=== PATIENT | female | born 1930 | race Caucasian/White ===

== ENCOUNTER 2016-09-06 19:18 | Emergency (ER) | payer MEDICARE ==
--- NOTE | 2016-09-06 20:18 | ECGEPIP ---
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
[2016-09-06 20:26] LABS: MEAN CORPUSCULAR HEMOGLOBIN 31.8 pg (27.0-33.0); MEAN CORPUSCULAR HGB CONC 32.8 g/dl (32.0-36.5); MEAN CORPUSCULAR VOLUME 96.9 fl (80.0-96.0); RED CELL DISTRIBUTION WIDTH 12.3 % (11.5-14.5); WHITE BLOOD COUNT 6.4 K/mm3 (4.0-10.0)
[2016-09-06 20:28] LABS: INR 2.06
[2016-09-06 20:31] LABS: BLOOD UREA NITROGEN 29 MG/DL (7-18); CALCIUM LEVEL 9.4 MG/DL (8.8-10.2); CARBON DIOXIDE LEVEL 30 MEQ/L (21-32); CREATININE FOR GFR 1.29 MG/DL (0.55-1.02); GLOMERULAR FILTRATION RATE 41.7 (>32); GLUCOSE, FASTING 111 MG/DL (83-110)
[2016-09-06 20:35] LABS: ANION GAP 8 MEQ/L (8-16); CHLORIDE LEVEL 103 MEQ/L (98-107); POTASSIUM SERUM 4.1 MEQ/L (3.5-5.1); SODIUM LEVEL 141 MEQ/L (136-145)
--- NOTE | 2016-09-07 01:31 | EDDOCDS ---
Physician Documentation [facility], [place] Name: Janet Sandhu Age: 85 yrs Sex: Female : 1930 Arrival Date: 09/06/2016 Time: 19:18 Bed 4 Private MD: Unknown, Family Disposition: 09/07/16 01:19 Discharged to Home/Self Care. Impression: Chest pain, unspecified. - Condition is Stable. - Medication Reconciliation, Local Pharmacy Hours form. - Follow up: Isaias Belle MD; When: Call to arrange an appointment; Reason: Recheck today's complaints. - Problem is new. - Symptoms have improved. Historical: - Allergies: Aspirin; - Home Meds: 1. lisinopril 20 mg Oral tab 1 tab once daily 2. simvastatin 5 mg Oral tab 1 tab once daily 3. atenolol 75 mg Oral tab 2 times per day 4. amlodipine 5 mg Oral tab 1 tab once daily 5. Coumadin 1 mg Oral tab 1 tab once daily 6. Caltrate 600 + D oral oral Unknown daily 7. Vitamin C 250 mg Oral tab 8. Multivitamin Oral 9. tramadol 50 mg Oral tab - PMHx: Hypertension; High Cholesterol; Glaucoma; afib; - PSHx: eye surgery may 2010; - Family history: Father has/had cardiac disorder, Brother has/had cardiac disorder. - Social history: No barriers to communication noted, The patient speaks fluent Welsh, Smoking status: Patient states was never smoker of tobacco. - : The pt / caregiver states he / she is on anticoagulants: coumadin. Home medication list is obtained from the patient. - Exposure Risk Screening:: None identified. - Advance directive:: No. Vital Signs: 09/06 19:20 BP 155 / 96; Pulse 99; Resp 18; Temp 98.0; Pulse Ox 99% on R/A; Weight 52.16 kg / dem1 114.99 lbs; Height 5 ft. 3 in. (160.02 cm); Pain 2/10; 19:43 BP 137 / 80 (auto/); mv5 19:44 Pulse 82 MON; Pulse Ox 98% ; mv5 19:58 BP 147 / 65 (auto/); mv5 19:59 Pulse 80 MON; Pulse Ox 99% ; mv5 20:13 BP 140 / 79 (auto/); mv5 20:14 Pulse 76 MON; Pulse Ox 98% ; mv5 20:28 BP 120 / 65 (auto/); mv5 20:29 Pulse 76 MON; Pulse Ox 98% ; mv5 20:43 BP 131 / 59 (auto/); mv5 20:44 Pulse 72 MON; Pulse Ox 98% ; mv5 20:58 BP 136 / 67 (auto/); mv5 20:59 Pulse 78 MON; Pulse Ox 98% ; mv5 21:13 BP 123 / 59 (auto/); mv5 21:14 Pulse 74 MON; Pulse Ox 98% ; mv5 21:28 BP 151 / 67 (auto/); mv5 21:29 Pulse 78 MON; Pulse Ox 97% ; mv5 21:43 BP 122 / 58 (auto/); mv5 21:44 Pulse 72 MON; Pulse Ox 97% ; mv5 21:58 BP 132 / 75 (auto/); mv5 21:59 Pulse 72 MON; Pulse Ox 97% ; mv5 22:43 BP 149 / 63 (auto/); mv5 22:43 Pulse 76 MON; Pulse Ox 99% ; mv5 22:58 BP 136 / 65 (auto/); mv5 22:59 Pulse 82 MON; Pulse Ox 98% ; mv5 23:13 BP 125 / 57 (auto/); mv5 23:14 Pulse 76 MON; Pulse Ox 96% ; mv5 23:31 BP 148 / 78 (auto/); mv5 23:31 Pulse 84 MON; Pulse Ox 98% ; mv5 23:43 BP 124 / 59 (auto/); mv5 23:44 Pulse 70 MON; Pulse Ox 97% ; mv5 23:58 BP 127 / 77 (auto/); mv5 23:59 Pulse 70 MON; Pulse Ox 96% ; mv5 0207 00:13 BP 128 / 66 (auto/); mv5 00:14 Pulse 70 MON; Pulse Ox 96% ; mv5 00:43 BP 135 / 65 (auto/); mv5 00:44 Pulse 68 MON; Pulse Ox 97% ; mv5 00:58 BP 125 / 71 (auto/); mv5 00:59 Pulse 68 MON; Pulse Ox 96% ; mv5 01:13 BP 142 / 90 (auto/); mv5 01:13 Pulse 72 MON; Pulse Ox 98% ; mv5 09/06 19:20 Body Mass Index 20.37 (52.16 kg, 160.02 cm) dem1 MDM: 09/06 19:35 ECG WITH READING ER PHYS+CARDIAG ordered. EDMS 20:06 CBC Ordered. EDMS 20:06 MED Profile Ordered. EDMS 20:06 Cardiac Marker Panel Ordered. EDMS 20:06 Pt & Aptt Ordered. EDMS 20:07 Chest, 1 View Ordered. EDMS 21:00 CBC Reviewed. cs11 21:00 MED Profile Reviewed. cs11 21:00 Pt & Aptt Reviewed. cs11 21:00 Cardiac Marker Panel Reviewed. cs11 21:00 EKG-ADULT Reviewed. cs11 22:25 Misc Construction Accountant Order ordered. cs11 22:37 Misc Construction Accountant Order complete. tmm1 22:38 ECG WITH READING ER PHYS ordered. EDMS 22:38 CARDIAC MARKER PANEL Ordered. EDMS 09/07 01:12 Financial registration complete. pm4 01:16 CARDIAC MARKER PANEL Reviewed. cs11 Signatures: Dispatcher [employer] EDMS [place],RN RN lf1 Dominic Lizarraga, DO DO cs11 Kasandra Otto, FINE HAIRER FINE HAIRER tmm1 Faisal Mora, Reg Reg pm4 Antonia Santacruz,RN RN mv5 MTDD
--- NOTE | 2016-09-07 01:31 | EDDOCDS ---
Nurse's Notes [facility] Name: Mattie Sandhu Age: 85 yrs Sex: Female : 1930 Arrival Date: 09/06/2016 Time: 19:18 Bed 4 Private MD: Unknown, Family Dr Diagnosis: Chest pain, unspecified Presentation: 09/06 19:25 Red Flag criteria, patient assessed and taken directly to a bed. Primary Nurse aware, lf1 charge nurse aware, EKG ordered. 19:26 Presenting complaint: Patient states: Sudden onset chest pain that began at 1800 lf1 tonight while she getting dinner ready. Pain was mid sternal and 9/10, lasted about 1 minute and did not radiate. Pt. denies dizziness and shortness of breath. History of Afib. Aspirin was not taken prior to arrival. Adult Sepsis Screening: The patient does not have new or worsening altered mentation. Patient's respiratory rate is less than 22. Systolic blood pressure is greater than 100. Patient has a qSOFA score of 0- Negative Sepsis Screen. Suicide/Homicide risk assessment- the patient denies having any suicidal and/or homicidal ideations and does not present with any other emotional, behavioral or mental health complaints. Status: Patient is not a service desk technician or dependent. Transition of care: patient was not received from another setting of care. 19:26 Acuity: MARISOL Level 3 lf1 19:26 Method Of Arrival: Walkin/Carried/Asstd lf1 Triage Assessment: 19:43 General: Appears in no apparent distress, well nourished, well groomed, Behavior is mv5 cooperative, pleasant, Pt resting comfortably, daughter at bedside.. Pain: Denies pain. The patient is triaged at the bedside. See Assessment in Nurses Notes section of ED record. Neurological: Level of Consciousness is awake, alert, Oriented to person, place, time. EENT: No deficits noted. Cardiovascular: Capillary refill < 3 seconds Heart tones S1 S2 present Pulses are all present. Rhythm is atrial fibrillation Other in controlled rate. 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 radiates Does not radiate. episodes last 2-3 minutes began 1 hour prior to arrival. Respiratory: Airway is patent Respiratory effort is even, unlabored, Respiratory pattern is regular, symmetrical, Breath sounds are clear bilaterally. GI: No deficits noted. Abdomen is flat, Bowel sounds present X 4 quads. Abd is soft and non tender X 4 quads. Historical: - Allergies: Aspirin; - Home Meds: 1. lisinopril 20 mg Oral tab 1 tab once daily 2. simvastatin 5 mg Oral tab 1 tab once daily 3. atenolol 75 mg Oral tab 2 times per day 4. amlodipine 5 mg Oral tab 1 tab once daily 5. Coumadin 1 mg Oral tab 1 tab once daily 6. Caltrate 600 + D oral oral Unknown daily 7. Vitamin C 250 mg Oral tab 8. Multivitamin Oral 9. tramadol 50 mg Oral tab - PMHx: Hypertension; High Cholesterol; Glaucoma; afib; - PSHx: eye surgery may 2010; - Family history: Father has/had cardiac disorder, Brother has/had cardiac disorder. - Social history: No barriers to communication noted, The patient speaks fluent Greek, Smoking status: Patient states was never smoker of tobacco. - : The pt / caregiver states he / she is on anticoagulants: coumadin. Home medication list is obtained from the patient. - Exposure Risk Screening:: None identified. - Advance directive:: No. Screenin:47 Screening information is obtained from the patient, family members. Fall risk: No risks mv5 identified. Assistance ADL's: requires no assistance with activities of daily living. Abuse/DV Screen: The patient / caregiver reports he/she is: not in a situation that causes fear, pain or injury. Nutritional screening: No deficits noted. Advance Directives: There is no active DNR order. home support is adequate. Assessment: 19:47 General: See triage assessment.. Cardiovascular: Capillary refill < 3 seconds Heart mv5 tones S1 S2 present Pulses are all present. Rhythm is atrial fibrillation Other in controlled rate Chest pain is denied. 21:30 General: Appears in no apparent distress. Cardiovascular:. Derm: Skin is pink, warm & mv5 dry. 21:30 Cardiovascular: Rhythm is atrial fibrillation. mv5 22:07 General: Appears in no apparent distress. Pain: Denies pain. Cardiovascular: No mv5 deficits noted. 22:31 General: Appears in no apparent distress, Given food as requested with MD approval. mv5 Family at bedside. Awaiting repeat testing at 0000.. 22:31 Cardiovascular: Rhythm is atrial fibrillation. mv5 23:24 General: Appears in no apparent distress, Family at bedside.. Pain: Denies pain. mv5 Cardiovascular: No deficits noted. Derm: Skin is pink, warm & dry. 23:28 General: Appears in no apparent distress, comfortable, Pt assisted to use the restroom mv5 by ED QUARTER TRIMMER.. 23:28 Cardiovascular: Rhythm is atrial fibrillation. mv5 09/07 00:14 General: Appears in no apparent distress. Cardiovascular: Rhythm is atrial fibrillation mv5 Other in controlled rate. Respiratory: Airway is patent Respiratory effort is even, unlabored, Respiratory pattern is regular, symmetrical. Derm: Skin is pink, warm & dry. 01:27 General: Appears in no apparent distress, comfortable, Family at bedside.. Pain: Denies mv5 pain. Neurological: Level of Consciousness is awake, alert, Oriented to person, place, time. Cardiovascular: Rhythm is atrial fibrillation Other in controlled rate. Respiratory: Airway is patent Respiratory effort is even, unlabored, Respiratory pattern is regular, symmetrical. Derm: Skin is pink, warm & dry. Vital Signs: 09/06 19:20 BP 155 / 96; Pulse 99; Resp 18; Temp 98.0; Pulse Ox 99% on R/A; Weight 52.16 kg; Height dem1 5 ft. 3 in. (160.02 cm); Pain 2/10; 19:43 BP 137 / 80 (auto/); mv5 19:44 Pulse 82 MON; Pulse Ox 98% ; mv5 19:58 BP 147 / 65 (auto/); mv5 19:59 Pulse 80 MON; Pulse Ox 99% ; mv5 20:13 BP 140 / 79 (auto/); mv5 20:14 Pulse 76 MON; Pulse Ox 98% ; mv5 20:28 BP 120 / 65 (auto/); mv5 20:29 Pulse 76 MON; Pulse Ox 98% ; mv5 20:43 BP 131 / 59 (auto/); mv5 20:44 Pulse 72 MON; Pulse Ox 98% ; mv5 20:58 BP 136 / 67 (auto/); mv5 20:59 Pulse 78 MON; Pulse Ox 98% ; mv5 21:13 BP 123 / 59 (auto/); mv5 21:14 Pulse 74 MON; Pulse Ox 98% ; mv5 21:28 BP 151 / 67 (auto/); mv5 21:29 Pulse 78 MON; Pulse Ox 97% ; mv5 21:43 BP 122 / 58 (auto/); mv5 21:44 Pulse 72 MON; Pulse Ox 97% ; mv5 21:58 BP 132 / 75 (auto/); mv5 21:59 Pulse 72 MON; Pulse Ox 97% ; mv5 22:43 BP 149 / 63 (auto/); mv5 22:43 Pulse 76 MON; Pulse Ox 99% ; mv5 22:58 BP 136 / 65 (auto/); mv5 22:59 Pulse 82 MON; Pulse Ox 98% ; mv5 23:13 BP 125 / 57 (auto/); mv5 23:14 Pulse 76 MON; Pulse Ox 96% ; mv5 23:31 BP 148 / 78 (auto/); mv5 23:31 Pulse 84 MON; Pulse Ox 98% ; mv5 23:43 BP 124 / 59 (auto/); mv5 23:44 Pulse 70 MON; Pulse Ox 97% ; mv5 23:58 BP 127 / 77 (auto/); mv5 23:59 Pulse 70 MON; Pulse Ox 96% ; mv5 02/07 00:13 BP 128 / 66 (auto/); mv5 00:14 Pulse 70 MON; Pulse Ox 96% ; mv5 00:43 BP 135 / 65 (auto/); mv5 00:44 Pulse 68 MON; Pulse Ox 97% ; mv5 00:58 BP 125 / 71 (auto/); mv5 00:59 Pulse 68 MON; Pulse Ox 96% ; mv5 01:13 BP 142 / 90 (auto/); mv5 01:13 Pulse 72 MON; Pulse Ox 98% ; mv5 09/06 19:20 Body Mass Index 20.37 (52.16 kg, 160.02 cm) dem1 Vitals: 09/06 19:20 Log In Time: September 06, 2016 at 19:18. RN notified that patient meets Red Flag dem1 criteria. ED Course: 19:20 Patient visited by Allyssa Singh. dem1 19:20 Unknown, Family Dr is Private Physician. dem1 19:20 Patient moved to Waiting dem1 19:26 Antonia Santacruz,RN is Primary Nurse. sls1 19:26 Patient moved to 4 sls1 19:29 Triage Initiated lf1 19:30 Dominic Gracia DO is Attending Physician. cs11 19:30 Patient visited by Dominic Gracia DO. cs11 19:42 Patient visited by Scott Lujan PCA. mdr 19:42 EKG done. (by ED staff). Reviewed by Dominic Gracia DO. mdr 19:43 Family accompanied patient. mv5 19:46 Patient visited by Rebeca Rios PCA. karol 19:46 Pt greeted and oriented to ED. Patient advised of names of staff involved in care, karol location of call benavides, wait times and NPO status. Accompanied by Family Member, Patient has correct armband on for positive identification. Placed in gown. Bed in low position. Call light in reach. Side rails up X2. bus driver/monitor on. Pulse ox on. NIBP on. 19:47 The patient / caregiver is instructed regarding the plan of care and ED course. mv5 19:47 Inserted saline lock: 18 gauge in left antecubital area and blood collected. The mv5 patient tolerated the procedure well. 20:34 Patient visited by Antonia Santacruz RN. mv5 20:54 EKG-ADULT Returned. EDMS 21:47 Patient visited by Antonia Santacruz RN. mv5 22:24 Patient visited by Noreen Pizano RN. sls1 22:56 Patient visited by Antonia Santacruz RN. mv5 23:28 Patient visited by Antonia Santacruz RN. mv5 23:28 Patient visited by Scott Lujan PCA. mdr 23:28 Assisted to bathroom. mdr 02/07 00:25 Patient visited by Antonia Santacruz RN. mv5 00:33 CARDIAC MARKER PANEL Sent. mdr 00:44 Discontinued intact, bleeding controlled, pressure dressing applied, No mv5 redness/swelling at site. No procedures done that require assistance. 00:59 Patient visited by Antonia Santacruz RN. mv5 01:19 Isaias Belle MD is Referral Physician. cs11 Order Results: Lab Order: CBC; SPEC'M 09/06/16 19:36 Test: WHITE BLOOD COUNT; Value: 6.4; Range: 4.0-10.0; Units: K/mm3; Status: F Test: RED BLOOD COUNT; Value: 4.03; Range: 4.00-5.40; Units: M/mm3; Status: F Test: HEMOGLOBIN; Value: 12.8; Range: 12.0-16.0; Units: g/dl; Status: F Test: HEMATOCRIT; Value: 39.1; Range: 36.0-47.0; Units: %; Status: F Test: MEAN CORPUSCULAR VOLUME; Value: 96.9; Range: 80.0-96.0; Abnormal: Above high normal; Units: fl; Status: F Test: MEAN CORPUSCULAR HEMOGLOBIN; Value: 31.8; Range: 27.0-33.0; Units: pg; Status: F Test: MEAN CORPUSCULAR HGB CONC; Value: 32.8; Range: 32.0-36.5; Units: g/dl; Status: F Test: RED CELL DISTRIBUTION WIDTH; Value: 12.3; Range: 11.5-14.5; Units: %; Status: F Test: PLATELET COUNT, AUTOMATED; Value: 179; Range: 150-450; Units: k/mm3; Status: F Lab Order: MED Profile; [facility] 09/06/16 19:36 Test: GLUCOSE, FASTING; Value: 111; Range: 83-110; Abnormal: Above high normal; Units: MG/DL; Status: F Test: BLOOD UREA NITROGEN; Value: 29; Range: 7-18; Abnormal: Above high normal; Units: MG/DL; Status: F Test: CREATININE FOR GFR; Value: 1.29; Range: 0.55-1.02; Abnormal: Above high normal; Units: MG/DL; Status: F Test: GLOMERULAR FILTRATION RATE; Value: 41.7; Range: >32; Status: F Test: SODIUM LEVEL; Value: 141; Range: 136-145; Units: MEQ/L; Status: F Test: POTASSIUM SERUM; Value: 4.1; Range: 3.5-5.1; Units: MEQ/L; Status: F Test: CHLORIDE LEVEL; Value: 103; Range: 98-107; Units: MEQ/L; Status: F Test: CARBON DIOXIDE LEVEL; Value: 30; Range: 21-32; Units: MEQ/L; Status: F Test: ANION GAP; Value: 8; Range: 8-16; Units: MEQ/L; Status: F Test: CALCIUM LEVEL; Value: 9.4; Range: 8.8-10.2; Units: MG/DL; Status: F Test Note: ; Units are mL/min/1.73 m2 Chronic Kidney Disease Staging per NKF: Stage I & II GFR >=60 Normal to Mildly Decreased Stage III GFR 30-59 Moderately Decreased Stage IV GFR 15-29 Severely Decreased Stage V GFR <15 Very Little GFR Left ESRD GFR <15 on RAILROAD INSPECTOR Lab Order: Cardiac Marker Panel; [facility] 09/06/16 19:36 Test: CPK CREATINE PHOSPHOKINASE; Value: 63; Range: 26-192; Units: U/L; Status: F Test: CK-MB VALUE MASS; Value: 2.4; Range: 0.0-3.6; Units: NG/ML; Status: F Test: MB/CK RELATIVE INDEX; Value: 3.80; Range: < OR =4; Status: F Test: TROPONIN I; Value: < 0.02; Range: < 0.10; Units: NG/ML; Status: F Test Note: ; DIAGNOSIS CRITERIA MMB ng/ml Relative Index (RI) NON-AMI < or = 5 N/A AYALA ZONE > 5 < or = 4 AMI > 5 > 4 Lab Order: Pt & Aptt; [facility] 09/06/16 19:36 Test: PROTHROMBIN TIME; Value: 23.3; Range: 12.3-14.5; Abnormal: Above high normal; Units: SECONDS; Status: F Test: INR; Value: 2.06; Status: F Test: PARTIAL THROMBOPLASTIN TIME; Value: 53.0; Range: 26.6-37.1; Abnormal: Above high normal; Units: SECONDS; Status: F Test Note: ; THERAPUTIC HUMAN INR VALUES INDICATIONS NORMAL RANGES PROPHYLAXIS/TREATMENT OF: VENOUS THROMBOSIS 2.0-3.0 PULMONARY EMBOLISM 2.0-3.0 PREVENTION OF SYSTEMIC EMBOLISM FROM: TISSUE HEART VALVES 2.0-3.0 ACUTE MYOCARDIAL INFARCTION 2.0-3.0 VALVULAR HEART DISEASE 2.0-3.0 ATRIAL FIBRILLATION 2.0-3.0 MECHANICAL VALVES(HIGH RISK) 2.5-3.5 RECURRENT MYOCARDIAL INFARCTION 2.5-3.5 Lab Order: CARDIAC MARKER PANEL; [facility] 09/07/16 00:28 Test: CPK CREATINE PHOSPHOKINASE; Value: 52; Range: 26-192; Units: U/L; Status: F Test: CK-MB VALUE MASS; Value: 1.7; Range: 0.0-3.6; Units: NG/ML; Status: F Test: MB/CK RELATIVE INDEX; Value: 3.26; Range: < OR =4; Status: F Test: TROPONIN I; Value: < 0.02; Range: < 0.10; Units: NG/ML; Status: F Test Note: ; DIAGNOSIS CRITERIA MMB ng/ml Relative Index (RI) NON-AMI < or = 5 N/A AYALA ZONE > 5 < or = 4 AMI > 5 > 4 Radiology Order: EKG-ADULT Test: EKG-ADULT REASON FOR EXAMINATION: Chest Pain; Stationary ECG Study; [facility] - ED; ; Test Date: 2016-09-06; Pat Name: MATTIE SANDHU Department:; Room: -; Gender: F 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 No cognitive and/or mv5 functional deficits noted. Patient verbalized understanding of disposition instructions. patient administered narcotics - no. The following High Risk Discharge criteria are identified: None. Condition: stable. Discharge instructions given to patient, family, Demonstrated understanding of Pt was receptive of discharge instructions/ teaching. No special radiology studies were completed. Property sent home with patient. 01:19 Discharge ordered by Provider. cs11 01:30 Patient left the ED. mv5 Signatures: Dispatcher [employer] EDMS [place],RN RN lf1 Rebeca Rios, QUARTER TRIMMER QUARTER TRIMMER Noreen Lombardi, RN RN sls1 Allyssa Singh dem1 Dominic Gracia DO DO cs11 Scott Lujan, QUARTER TRIMMER QUARTER TRIMMER Antonia GasparRN RN mv5 MTDD
--- NOTE | 2016-09-07 08:23 | REP ---
Portable chest, single AP view, patient sitting, 09/06/2016, 08:00 p.m.: Comparison is 09/28/2014. 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 There are no acute infiltrates or effusions. Cardiac size appears enlarged, however, there is magnification from portable positioning. The emily, mediastinum, bony thorax are unchanged. Impression: Chronic stable changes as described. No new or acute cardiopulmonary findings. Signed by Mike Navarro MD 09/07/2016 08:15 A
--- NOTE | 2016-09-08 17:37 | ECGEPIP ---
Stationary ECG Study [facility] - ED Test Date: 2016-09-07 Pat Name: MATTIE DEGROOT Department: Room: - Gender: F Personnel Officer: : 1930 Requested By: AL GRACIA Order Number: [id number] Reading MD: Michaela Christiansen Measurements Intervals [place] Rate: 61 P: NC: 0 QRS: 60 QRSD: 85 T: 32 QT: 397 QTc: 403 Interpretive Statements ATRIAL FIBRILLATION POSSIBLE RIGHT VENTRICULAR CONDUCTION DELAY ABNORMAL RHYTHM ECG Electronically Signed On 09-08-2016 17:37:20 EST by Michaela Christiansen
--- NOTE | 2016-09-09 02:32 | EDDOCDS ---
Physician Documentation [facility] Name: Janet Sandhu Age: 85 yrs Sex: Female : 1930 Arrival Date: 09/06/2016 Time: 19:18 Bed 4 Private MD: Unknown, Family Disposition: 09/07/16 01:19 Discharged to Home/Self Care. Impression: Chest pain, unspecified. - Condition is Stable. - Medication Reconciliation, Local Pharmacy Hours form. - Follow up: Isaias Belle MD; When: Call to arrange an appointment; Reason: Recheck today's complaints. - Problem is new. - Symptoms have improved. Historical: - Allergies: Aspirin; - Home Meds: 1. lisinopril 20 mg Oral tab 1 tab once daily 2. simvastatin 5 mg Oral tab 1 tab once daily 3. atenolol 75 mg Oral tab 2 times per day 4. amlodipine 5 mg Oral tab 1 tab once daily 5. Coumadin 1 mg Oral tab 1 tab once daily 6. Caltrate 600 + D oral oral Unknown daily 7. Vitamin C 250 mg Oral tab 8. Multivitamin Oral 9. tramadol 50 mg Oral tab - PMHx: Hypertension; High Cholesterol; Glaucoma; afib; - PSHx: eye surgery may 2010; - Family history: Father has/had cardiac disorder, Brother has/had cardiac disorder. - Social history: No barriers to communication noted, The patient speaks fluent Swedish, Smoking status: Patient states was never smoker of tobacco. - : The pt / caregiver states he / she is on anticoagulants: coumadin. Home medication list is obtained from the patient. - Exposure Risk Screening:: None identified. - Advance directive:: No. Vital Signs: 09/06 19:20 BP 155 / 96; Pulse 99; Resp 18; Temp 98.0; Pulse Ox 99% on R/A; Weight 52.16 kg / dem1 114.99 lbs; Height 5 ft. 3 in. (160.02 cm); Pain 2/10; 19:43 BP 137 / 80 (auto/); mv5 19:44 Pulse 82 MON; Pulse Ox 98% ; mv5 19:58 BP 147 / 65 (auto/); mv5 19:59 Pulse 80 MON; Pulse Ox 99% ; mv5 20:13 BP 140 / 79 (auto/); mv5 20:14 Pulse 76 MON; Pulse Ox 98% ; mv5 20:28 BP 120 / 65 (auto/); mv5 20:29 Pulse 76 MON; Pulse Ox 98% ; mv5 20:43 BP 131 / 59 (auto/); mv5 20:44 Pulse 72 MON; Pulse Ox 98% ; mv5 20:58 BP 136 / 67 (auto/); mv5 20:59 Pulse 78 MON; Pulse Ox 98% ; mv5 21:13 BP 123 / 59 (auto/); mv5 21:14 Pulse 74 MON; Pulse Ox 98% ; mv5 21:28 BP 151 / 67 (auto/); mv5 21:29 Pulse 78 MON; Pulse Ox 97% ; mv5 21:43 BP 122 / 58 (auto/); mv5 21:44 Pulse 72 MON; Pulse Ox 97% ; mv5 21:58 BP 132 / 75 (auto/); mv5 21:59 Pulse 72 MON; Pulse Ox 97% ; mv5 22:43 BP 149 / 63 (auto/); mv5 22:43 Pulse 76 MON; Pulse Ox 99% ; mv5 22:58 BP 136 / 65 (auto/); mv5 22:59 Pulse 82 MON; Pulse Ox 98% ; mv5 23:13 BP 125 / 57 (auto/); mv5 23:14 Pulse 76 MON; Pulse Ox 96% ; mv5 23:31 BP 148 / 78 (auto/); mv5 23:31 Pulse 84 MON; Pulse Ox 98% ; mv5 23:43 BP 124 / 59 (auto/); mv5 23:44 Pulse 70 MON; Pulse Ox 97% ; mv5 23:58 BP 127 / 77 (auto/); mv5 23:59 Pulse 70 MON; Pulse Ox 96% ; mv5 0207 00:13 BP 128 / 66 (auto/); mv5 00:14 Pulse 70 MON; Pulse Ox 96% ; mv5 00:43 BP 135 / 65 (auto/); mv5 00:44 Pulse 68 MON; Pulse Ox 97% ; mv5 00:58 BP 125 / 71 (auto/); mv5 00:59 Pulse 68 MON; Pulse Ox 96% ; mv5 01:13 BP 142 / 90 (auto/); mv5 01:13 Pulse 72 MON; Pulse Ox 98% ; mv5 09/06 19:20 Body Mass Index 20.37 (52.16 kg, 160.02 cm) dem1 MDM: 09/06 19:35 ECG WITH READING ER PHYS+CARDIAG ordered. EDMS 20:06 CBC Ordered. EDMS 20:06 MED Profile Ordered. EDMS 20:06 Cardiac Marker Panel Ordered. EDMS 20:06 Pt & Aptt Ordered. EDMS 20:07 Chest, 1 View Ordered. EDMS 21:00 CBC Reviewed. cs11 21:00 MED Profile Reviewed. cs11 21:00 Pt & Aptt Reviewed. cs11 21:00 Cardiac Marker Panel Reviewed. cs11 21:00 EKG-ADULT Reviewed. cs11 22:25 Misc Optics Test Technician Order ordered. cs11 22:37 Misc Optics Test Technician Order complete. tmm1 22:38 ECG WITH READING ER PHYS ordered. EDMS 22:38 CARDIAC MARKER PANEL Ordered. EDMS 09/07 01:12 Financial registration complete. pm4 01:16 CARDIAC MARKER PANEL Reviewed. cs11 01:59 [facility] Payment Agreement was scanned into [employer] and attached to record. hs2 10:41 T-Sheet-- Draft Copy was scanned into [employer] and attached to record. gb 10:41 ECG/EKG was scanned into [employer] and attached to record. gb 14:31 ECG/EKG was scanned into [employer] and attached to record. gb Signatures: Dispatcher [employer] EDDionne Omalley, Reg Reg gb [place],RN RN lf1 Dominic Lizarraga, DO DO cs11 McLear, Kasandra, HIGH HEEL BUILDER HIGH HEEL BUILDER tmm1 Antonia Lakhani, Reg Reg hs2 Faisal Mora, Reg Reg pm4 Antonia Santacruz,RN RN mv5 The chart was reviewed and I authenticate all verbal orders and agree with the evaluation and treatment provided.Attachments: 01:59 [facility] Payment Agreement hs2 10:41 T-Sheet-- Draft Copy gb 10:41 ECG/EKG gb 14:31 ECG/EKG gb Chart Complete MTDD
--- NOTE | 2016-09-09 02:32 | EDDOCDS ---
Nurse's Notes [facility] Name: Mattie Sandhu Age: 85 yrs Sex: Female : 1930 Arrival Date: 09/06/2016 Time: 19:18 Bed 4 Private MD: Unknown, Family Dr Diagnosis: Chest pain, unspecified Presentation: 09/06 19:25 Red Flag criteria, patient assessed and taken directly to a bed. Primary Nurse aware, lf1 charge nurse aware, EKG ordered. 19:26 Presenting complaint: Patient states: Sudden onset chest pain that began at 1800 lf1 tonight while she getting dinner ready. Pain was mid sternal and 9/10, lasted about 1 minute and did not radiate. Pt. denies dizziness and shortness of breath. History of Afib. Aspirin was not taken prior to arrival. Adult Sepsis Screening: The patient does not have new or worsening altered mentation. Patient's respiratory rate is less than 22. Systolic blood pressure is greater than 100. Patient has a qSOFA score of 0- Negative Sepsis Screen. Suicide/Homicide risk assessment- the patient denies having any suicidal and/or homicidal ideations and does not present with any other emotional, behavioral or mental health complaints. Status: Patient is not a electric refrigerator servicer or dependent. Transition of care: patient was not received from another setting of care. 19:26 Acuity: MARISOL Level 3 lf1 19:26 Method Of Arrival: Walkin/Carried/Asstd lf1 Triage Assessment: 19:43 General: Appears in no apparent distress, well nourished, well groomed, Behavior is mv5 cooperative, pleasant, Pt resting comfortably, daughter at bedside.. Pain: Denies pain. The patient is triaged at the bedside. See Assessment in Nurses Notes section of ED record. Neurological: Level of Consciousness is awake, alert, Oriented to person, place, time. EENT: No deficits noted. Cardiovascular: Capillary refill < 3 seconds Heart tones S1 S2 present Pulses are all present. Rhythm is atrial fibrillation Other in controlled rate. Chest pain is denied is described as Pain episode resolved LOAN ANALYST.. radiates Does not radiate. episodes last 2-3 minutes began 1 hour prior to arrival. Respiratory: Airway is patent Respiratory effort is even, unlabored, Respiratory pattern is regular, symmetrical, Breath sounds are clear bilaterally. GI: No deficits noted. Abdomen is flat, Bowel sounds present X 4 quads. Abd is soft and non tender X 4 quads. Historical: - Allergies: Aspirin; - Home Meds: 1. lisinopril 20 mg Oral tab 1 tab once daily 2. simvastatin 5 mg Oral tab 1 tab once daily 3. atenolol 75 mg Oral tab 2 times per day 4. amlodipine 5 mg Oral tab 1 tab once daily 5. Coumadin 1 mg Oral tab 1 tab once daily 6. Caltrate 600 + D oral oral Unknown daily 7. Vitamin C 250 mg Oral tab 8. Multivitamin Oral 9. tramadol 50 mg Oral tab - PMHx: Hypertension; High Cholesterol; Glaucoma; afib; - PSHx: eye surgery may 2010; - Family history: Father has/had cardiac disorder, Brother has/had cardiac disorder. - Social history: No barriers to communication noted, The patient speaks fluent Tanzanian, Smoking status: Patient states was never smoker of tobacco. - : The pt / caregiver states he / she is on anticoagulants: coumadin. Home medication list is obtained from the patient. - Exposure Risk Screening:: None identified. - Advance directive:: No. Screenin:47 Screening information is obtained from the patient, family members. Fall risk: No risks mv5 identified. Assistance ADL's: requires no assistance with activities of daily living. Abuse/DV Screen: The patient / caregiver reports he/she is: not in a situation that causes fear, pain or injury. Nutritional screening: No deficits noted. Advance Directives: There is no active DNR order. home support is adequate. Assessment: 19:47 General: See triage assessment.. Cardiovascular: Capillary refill < 3 seconds Heart mv5 tones S1 S2 present Pulses are all present. Rhythm is atrial fibrillation Other in controlled rate Chest pain is denied. 21:30 General: Appears in no apparent distress. Cardiovascular:. Derm: Skin is pink, warm & mv5 dry. 21:30 Cardiovascular: Rhythm is atrial fibrillation. mv5 22:07 General: Appears in no apparent distress. Pain: Denies pain. Cardiovascular: No mv5 deficits noted. 22:31 General: Appears in no apparent distress, Given food as requested with MD approval. mv5 Family at bedside. Awaiting repeat testing at 0000.. 22:31 Cardiovascular: Rhythm is atrial fibrillation. mv5 23:24 General: Appears in no apparent distress, Family at bedside.. Pain: Denies pain. mv5 Cardiovascular: No deficits noted. Derm: Skin is pink, warm & dry. 23:28 General: Appears in no apparent distress, comfortable, Pt assisted to use the restroom mv5 by ED OCCUPATIONAL HYGIENIST.. 23:28 Cardiovascular: Rhythm is atrial fibrillation. mv5 09/07 00:14 General: Appears in no apparent distress. Cardiovascular: Rhythm is atrial fibrillation mv5 Other in controlled rate. Respiratory: Airway is patent Respiratory effort is even, unlabored, Respiratory pattern is regular, symmetrical. Derm: Skin is pink, warm & dry. 01:27 General: Appears in no apparent distress, comfortable, Family at bedside.. Pain: Denies mv5 pain. Neurological: Level of Consciousness is awake, alert, Oriented to person, place, time. Cardiovascular: Rhythm is atrial fibrillation Other in controlled rate. Respiratory: Airway is patent Respiratory effort is even, unlabored, Respiratory pattern is regular, symmetrical. Derm: Skin is pink, warm & dry. Vital Signs: 09/06 19:20 BP 155 / 96; Pulse 99; Resp 18; Temp 98.0; Pulse Ox 99% on R/A; Weight 52.16 kg; Height dem1 5 ft. 3 in. (160.02 cm); Pain 2/10; 19:43 BP 137 / 80 (auto/); mv5 19:44 Pulse 82 MON; Pulse Ox 98% ; mv5 19:58 BP 147 / 65 (auto/); mv5 19:59 Pulse 80 MON; Pulse Ox 99% ; mv5 20:13 BP 140 / 79 (auto/); mv5 20:14 Pulse 76 MON; Pulse Ox 98% ; mv5 20:28 BP 120 / 65 (auto/); mv5 20:29 Pulse 76 MON; Pulse Ox 98% ; mv5 20:43 BP 131 / 59 (auto/); mv5 20:44 Pulse 72 MON; Pulse Ox 98% ; mv5 20:58 BP 136 / 67 (auto/); mv5 20:59 Pulse 78 MON; Pulse Ox 98% ; mv5 21:13 BP 123 / 59 (auto/); mv5 21:14 Pulse 74 MON; Pulse Ox 98% ; mv5 21:28 BP 151 / 67 (auto/); mv5 21:29 Pulse 78 MON; Pulse Ox 97% ; mv5 21:43 BP 122 / 58 (auto/); mv5 21:44 Pulse 72 MON; Pulse Ox 97% ; mv5 21:58 BP 132 / 75 (auto/); mv5 21:59 Pulse 72 MON; Pulse Ox 97% ; mv5 22:43 BP 149 / 63 (auto/); mv5 22:43 Pulse 76 MON; Pulse Ox 99% ; mv5 22:58 BP 136 / 65 (auto/); mv5 22:59 Pulse 82 MON; Pulse Ox 98% ; mv5 23:13 BP 125 / 57 (auto/); mv5 23:14 Pulse 76 MON; Pulse Ox 96% ; mv5 23:31 BP 148 / 78 (auto/); mv5 23:31 Pulse 84 MON; Pulse Ox 98% ; mv5 23:43 BP 124 / 59 (auto/); mv5 23:44 Pulse 70 MON; Pulse Ox 97% ; mv5 23:58 BP 127 / 77 (auto/); mv5 23:59 Pulse 70 MON; Pulse Ox 96% ; mv5 02/07 00:13 BP 128 / 66 (auto/); mv5 00:14 Pulse 70 MON; Pulse Ox 96% ; mv5 00:43 BP 135 / 65 (auto/); mv5 00:44 Pulse 68 MON; Pulse Ox 97% ; mv5 00:58 BP 125 / 71 (auto/); mv5 00:59 Pulse 68 MON; Pulse Ox 96% ; mv5 01:13 BP 142 / 90 (auto/); mv5 01:13 Pulse 72 MON; Pulse Ox 98% ; mv5 09/06 19:20 Body Mass Index 20.37 (52.16 kg, 160.02 cm) dem1 Vitals: 09/06 19:20 Log In Time: September 06, 2016 at 19:18. RN notified that patient meets Red Flag dem1 criteria. ED Course: 19:20 Patient visited by Allyssa Singh. dem1 19:20 Unknown, Family Dr is Private Physician. dem1 19:20 Patient moved to Waiting dem1 19:26 Antonia Santacruz,RN is Primary Nurse. sls1 19:26 Patient moved to 4 sls1 19:29 Triage Initiated lf1 19:30 Al Gracia DO is Attending Physician. cs11 19:30 Patient visited by Al Gracia DO. cs11 19:42 Patient visited by Scott Lujan PCA. mdr 19:42 EKG done. (by ED staff). Reviewed by Al Gracia DO. mdr 19:43 Family accompanied patient. mv5 19:46 Patient visited by Rebeca Rios PCA. karol 19:46 Pt greeted and oriented to ED. Patient advised of names of staff involved in care, karol location of call benavides, wait times and NPO status. Accompanied by Family Member, Patient has correct armband on for positive identification. Placed in gown. Bed in low position. Call light in reach. Side rails up X2. surveillance system monitor on. Pulse ox on. NIBP on. 19:47 The patient / caregiver is instructed regarding the plan of care and ED course. mv5 19:47 Inserted saline lock: 18 gauge in left antecubital area and blood collected. The mv5 patient tolerated the procedure well. 20:34 Patient visited by Antonia Santacruz RN. mv5 20:54 EKG-ADULT Returned. EDMS 21:47 Patient visited by Antonia Santacruz RN. mv5 22:24 Patient visited by Noreen Pizano RN. sls1 22:56 Patient visited by Antonia Santacruz,CHRISTOPHER. mv5 23:28 Patient visited by Antonia Santacruz,CHRISTOPHER. mv5 23:28 Patient visited by Scott Lujan PCA. mdr 23:28 Assisted to bathroom. mdr 02/07 00:25 Patient visited by Antonia Santacruz,CHRISTOPHER. mv5 00:33 CARDIAC MARKER PANEL Sent. mdr 00:44 Discontinued intact, bleeding controlled, pressure dressing applied, No mv5 redness/swelling at site. No procedures done that require assistance. 00:59 Patient visited by Antonia Santacruz RN. mv5 01:19 Isaias Belle MD is Referral Physician. cs11 01:59 [facility] [place] was scanned into [employer] and attached to record. hs2 08:55 Chest, 1 View Returned. EDMS 10:41 T-Sheet-- Draft Copy was scanned into [employer] and attached to record. gb 10:41 ECG/EKG was scanned into [employer] and attached to record. gb 14:31 ECG/EKG was scanned into [employer] and attached to record. gb 09/08 18:15 ECG WITH READING ER PHYS Returned. EDMS Order Results: Lab Order: CBC; SPEC'M 09/06/16 19:36 Test: WHITE BLOOD COUNT; Value: 6.4; Range: 4.0-10.0; Units: K/mm3; Status: F Test: RED BLOOD COUNT; Value: 4.03; Range: 4.00-5.40; Units: M/mm3; Status: F Test: HEMOGLOBIN; Value: 12.8; Range: 12.0-16.0; Units: g/dl; Status: F Test: HEMATOCRIT; Value: 39.1; Range: 36.0-47.0; Units: %; Status: F Test: MEAN CORPUSCULAR VOLUME; Value: 96.9; Range: 80.0-96.0; Abnormal: Above high normal; Units: fl; Status: F Test: MEAN CORPUSCULAR HEMOGLOBIN; Value: 31.8; Range: 27.0-33.0; Units: pg; Status: F Test: MEAN CORPUSCULAR HGB CONC; Value: 32.8; Range: 32.0-36.5; Units: g/dl; Status: F Test: RED CELL DISTRIBUTION WIDTH; Value: 12.3; Range: 11.5-14.5; Units: %; Status: F Test: PLATELET COUNT, AUTOMATED; Value: 179; Range: 150-450; Units: k/mm3; Status: F Lab Order: MED Profile; [facility]' 09/06/16 19:36 Test: GLUCOSE, FASTING; Value: 111; Range: 83-110; Abnormal: Above high normal; Units: MG/DL; Status: F Test: BLOOD UREA NITROGEN; Value: 29; Range: 7-18; Abnormal: Above high normal; Units: MG/DL; Status: F Test: CREATININE FOR GFR; Value: 1.29; Range: 0.55-1.02; Abnormal: Above high normal; Units: MG/DL; Status: F Test: GLOMERULAR FILTRATION RATE; Value: 41.7; Range: >32; Status: F Test: SODIUM LEVEL; Value: 141; Range: 136-145; Units: MEQ/L; Status: F Test: POTASSIUM SERUM; Value: 4.1; Range: 3.5-5.1; Units: MEQ/L; Status: F Test: CHLORIDE LEVEL; Value: 103; Range: 98-107; Units: MEQ/L; Status: F Test: CARBON DIOXIDE LEVEL; Value: 30; Range: 21-32; Units: MEQ/L; Status: F Test: ANION GAP; Value: 8; Range: 8-16; Units: MEQ/L; Status: F Test: CALCIUM LEVEL; Value: 9.4; Range: 8.8-10.2; Units: MG/DL; Status: F Test Note: ; Units are mL/min/1.73 m2 Chronic Kidney Disease Staging per NKF: Stage I & II GFR >=60 Normal to Mildly Decreased Stage III GFR 30-59 Moderately Decreased Stage IV GFR 15-29 Severely Decreased Stage V GFR <15 Very Little GFR Left ESRD GFR <15 on HEAVY EQUIPMENT SALES MANAGER Lab Order: Cardiac Marker Panel; SPEC'09/06/16 19:36 Test: CPK CREATINE PHOSPHOKINASE; Value: 63; Range: 26-192; Units: U/L; Status: F Test: CK-MB VALUE MASS; Value: 2.4; Range: 0.0-3.6; Units: NG/ML; Status: F Test: MB/CK RELATIVE INDEX; Value: 3.80; Range: < OR =4; Status: F Test: TROPONIN I; Value: < 0.02; Range: < 0.10; Units: NG/ML; Status: F Test Note: ; DIAGNOSIS CRITERIA MMB ng/ml Relative Index (RI) NON-AMI < or = 5 N/A AYALA ZONE > 5 < or = 4 AMI > 5 > 4 Lab Order: Pt & Aptt; SPEC'09/06/16 19:36 Test: PROTHROMBIN TIME; Value: 23.3; Range: 12.3-14.5; Abnormal: Above high normal; Units: SECONDS; Status: F Test: INR; Value: 2.06; Status: F Test: PARTIAL THROMBOPLASTIN TIME; Value: 53.0; Range: 26.6-37.1; Abnormal: Above high normal; Units: SECONDS; Status: F Test Note: ; THERAPUTIC HUMAN INR VALUES INDICATIONS NORMAL RANGES PROPHYLAXIS/TREATMENT OF: VENOUS THROMBOSIS 2.0-3.0 PULMONARY EMBOLISM 2.0-3.0 PREVENTION OF SYSTEMIC EMBOLISM FROM: TISSUE HEART VALVES 2.0-3.0 ACUTE MYOCARDIAL INFARCTION 2.0-3.0 VALVULAR HEART DISEASE 2.0-3.0 ATRIAL FIBRILLATION 2.0-3.0 MECHANICAL VALVES(HIGH RISK) 2.5-3.5 RECURRENT MYOCARDIAL INFARCTION 2.5-3.5 Lab Order: CARDIAC MARKER PANEL; SPEC'M 09/07/16 00:28 Test: CPK CREATINE PHOSPHOKINASE; Value: 52; Range: 26-192; Units: U/L; Status: F Test: CK-MB VALUE MASS; Value: 1.7; Range: 0.0-3.6; Units: NG/ML; Status: F Test: MB/CK RELATIVE INDEX; Value: 3.26; Range: < OR =4; Status: F Test: TROPONIN I; Value: < 0.02; Range: < 0.10; Units: NG/ML; Status: F Test Note: ; DIAGNOSIS CRITERIA MMB ng/ml Relative Index (RI) NON-AMI < or = 5 N/A AYALA ZONE > 5 < or = 4 AMI > 5 > 4 Radiology Order: EKG-ADULT Test: EKG-ADULT REASON FOR EXAMINATION: Chest Pain; Stationary ECG Study; [facility] - ED; ; Test Date: 2016-09-06; Pat Name: MATTIE SANDHU Department:; Room: -; Gender: F Branch Service Leader: ; : 1930 Requested By: AL GRACIA; Order Number: [id number] Reading MD: Michaela Christiansen; Measurements; Intervals [place]; Rate: 78 P:; VA: 0 QRS: 53; QRSD: 83 T: 34; QT: 375; QTc: 427; Interpretive Statements; ATRIAL FIBRILLATION; POSSIBLE RIGHT VENTRICULAR CONDUCTION DELAY; ABNORMAL RHYTHM ECG; DECREASED RATE 09/28/14; Electronically Signed On 09-06-2016 20:17:38 EST by Michaela Christiansen; Radiology Order: Chest, 1 View Test: Chest, 1 View REASON FOR EXAMINATION: Chest Pain; Portable chest, single AP view, patient sitting, 09/06/2016, 08:00 p.m.:; ; Comparison is 09/28/2014.; ; 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 No new or acute cardiopulmonary findings.; ; ; Signed by; Mike Navarro MD 09/07/2016 08:15 A; Radiology Order: ECG WITH READING ER PHYS Test: ECG WITH READING ER PHYS REASON FOR EXAMINATION: CHEST PAIN; Stationary ECG Study; [facility] - ED; ; Test Date: 2016-09-07; Pat Name: MATTIE SANDHU Department:; Room: -; Gender: F Branch Service Leader: courtney : 1930 Requested By: AL GRACIA; Order Number: [id number] Reading MD: Michaela Christiansen; Measurements; Intervals [place]; Rate: 61 P:; VA: 0 QRS: 60; QRSD: 85 T: 32; QT: 397; QTc: 403; Interpretive Statements; ATRIAL FIBRILLATION; POSSIBLE RIGHT VENTRICULAR CONDUCTION DELAY; ABNORMAL RHYTHM ECG; ; Electronically Signed On 09-08-2016 17:37:20 EST by Michaela Christiansen; Outcome: 09/07 00:44 Discharge Assessment: Patient awake, alert and oriented x 3. No cognitive and/or mv5 functional deficits noted. Patient verbalized understanding of disposition instructions. patient administered narcotics - no. The following High Risk Discharge criteria are identified: None. Condition: stable. Discharge instructions given to patient, family, Demonstrated understanding of Pt was receptive of discharge instructions/ teaching. No special radiology studies were completed. Property sent home with patient. 01:19 Discharge ordered by Provider. cs11 01:30 Patient left the ED. mv5 Signatures: Dispatcher [employer] EDMS Dionne Vance, Reg Reg gb [place],RN RN lf1 Rebeca Rios, OCCUPATIONAL HYGIENIST OCCUPATIONAL HYGIENIST Noreen Lombardi, RN RN sls1 Allyssa Singh Craig, DO DO cs11 Scott Lujan, OCCUPATIONAL HYGIENIST OCCUPATIONAL HYGIENIST mdr Antonia Lakhani, Reg Reg hs2 Antonia Santacruz,RN RN mv5 Chart Complete MTDD
--- NOTE | 2016-09-09 02:32 | EDDOCDS ---
Physician Documentation [employer] Name: Janet Sandhu Age: 85 yrs Sex: Female : 1930 Arrival Date: 09/06/2016 Time: 19:18 Bed 4 Private MD: Unknown, Family Disposition: 09/07/16 01:19 Discharged to Home/Self Care. Impression: Chest pain, unspecified. - Condition is Stable. - Medication Reconciliation, Local Pharmacy Hours form. - Follow up: Isaias Belle MD; When: Call to arrange an appointment; Reason: Recheck today's complaints. - Problem is new. - Symptoms have improved. Historical: - Allergies: Aspirin; - Home Meds: 1. lisinopril 20 mg Oral tab 1 tab once daily 2. simvastatin 5 mg Oral tab 1 tab once daily 3. atenolol 75 mg Oral tab 2 times per day 4. amlodipine 5 mg Oral tab 1 tab once daily 5. Coumadin 1 mg Oral tab 1 tab once daily 6. Caltrate 600 + D oral oral Unknown daily 7. Vitamin C 250 mg Oral tab 8. Multivitamin Oral 9. tramadol 50 mg Oral tab - PMHx: Hypertension; High Cholesterol; Glaucoma; afib; - PSHx: eye surgery may 2010; - Family history: Father has/had cardiac disorder, Brother has/had cardiac disorder. - Social history: No barriers to communication noted, The patient speaks fluent Ken[place], Smoking status: Patient states was never smoker of tobacco. - : The pt / caregiver states he / she is on anticoagulants: coumadin. Home medication list is obtained from the patient. - Exposure Risk Screening:: None identified. - Advance directive:: No. Vital Signs: 09/06 19:20 BP 155 / 96; Pulse 99; Resp 18; Temp 98.0; Pulse Ox 99% on R/A; Weight 52.16 kg / dem1 114.99 lbs; Height 5 ft. 3 in. (160.02 cm); Pain 2/10; 19:43 BP 137 / 80 (auto/); mv5 19:44 Pulse 82 MON; Pulse Ox 98% ; mv5 19:58 BP 147 / 65 (auto/); mv5 19:59 Pulse 80 MON; Pulse Ox 99% ; mv5 20:13 BP 140 / 79 (auto/); mv5 20:14 Pulse 76 MON; Pulse Ox 98% ; mv5 20:28 BP 120 / 65 (auto/); mv5 20:29 Pulse 76 MON; Pulse Ox 98% ; mv5 20:43 BP 131 / 59 (auto/); mv5 20:44 Pulse 72 MON; Pulse Ox 98% ; mv5 20:58 BP 136 / 67 (auto/); mv5 20:59 Pulse 78 MON; Pulse Ox 98% ; mv5 21:13 BP 123 / 59 (auto/); mv5 21:14 Pulse 74 MON; Pulse Ox 98% ; mv5 21:28 BP 151 / 67 (auto/); mv5 21:29 Pulse 78 MON; Pulse Ox 97% ; mv5 21:43 BP 122 / 58 (auto/); mv5 21:44 Pulse 72 MON; Pulse Ox 97% ; mv5 21:58 BP 132 / 75 (auto/); mv5 21:59 Pulse 72 MON; Pulse Ox 97% ; mv5 22:43 BP 149 / 63 (auto/); mv5 22:43 Pulse 76 MON; Pulse Ox 99% ; mv5 22:58 BP 136 / 65 (auto/); mv5 22:59 Pulse 82 MON; Pulse Ox 98% ; mv5 23:13 BP 125 / 57 (auto/); mv5 23:14 Pulse 76 MON; Pulse Ox 96% ; mv5 23:31 BP 148 / 78 (auto/); mv5 23:31 Pulse 84 MON; Pulse Ox 98% ; mv5 23:43 BP 124 / 59 (auto/); mv5 23:44 Pulse 70 MON; Pulse Ox 97% ; mv5 23:58 BP 127 / 77 (auto/); mv5 23:59 Pulse 70 MON; Pulse Ox 96% ; mv5 0207 00:13 BP 128 / 66 (auto/); mv5 00:14 Pulse 70 MON; Pulse Ox 96% ; mv5 00:43 BP 135 / 65 (auto/); mv5 00:44 Pulse 68 MON; Pulse Ox 97% ; mv5 00:58 BP 125 / 71 (auto/); mv5 00:59 Pulse 68 MON; Pulse Ox 96% ; mv5 01:13 BP 142 / 90 (auto/); mv5 01:13 Pulse 72 MON; Pulse Ox 98% ; mv5 09/06 19:20 Body Mass Index 20.37 (52.16 kg, 160.02 cm) dem1 MDM: 09/06 19:35 ECG WITH READING ER PHYS+CARDIAG ordered. EDMS 20:06 CBC Ordered. EDMS 20:06 MED Profile Ordered. EDMS 20:06 Cardiac Marker Panel Ordered. EDMS 20:06 Pt & Aptt Ordered. EDMS 20:07 Chest, 1 View Ordered. EDMS 21:00 CBC Reviewed. cs11 21:00 MED Profile Reviewed. cs11 21:00 Pt & Aptt Reviewed. cs11 21:00 Cardiac Marker Panel Reviewed. cs11 21:00 EKG-ADULT Reviewed. cs11 22:25 Misc Lasting Machine Operator Bed Order ordered. cs11 22:37 Misc Lasting Machine Operator Bed Order complete. tmm1 22:38 ECG WITH READING ER PHYS ordered. EDMS 22:38 CARDIAC MARKER PANEL Ordered. EDMS 09/07 01:12 Financial registration complete. pm4 01:16 CARDIAC MARKER PANEL Reviewed. cs11 01:59 [facility] Payment Agreement was scanned into [employer] and attached to record. hs2 10:41 T-Sheet-- Draft Copy was scanned into [employer] and attached to record. gb 10:41 ECG/EKG was scanned into [employer] and attached to record. gb 14:31 ECG/EKG was scanned into [employer] and attached to record. gb Signatures: Dispatcher [employer] EDDionne Omalley, Reg Reg gb [place],RN RN lf1 Dominic Lizarraga, DO DO cs11 McLear, Kasandra, COMPOSITE WORKER COMPOSITE WORKER tmm1 Antonia Lakhani, Reg Reg hs2 Faisal Mora, Reg Reg pm4 Antonia Santacruz,RN RN mv5 The chart was reviewed and I authenticate all verbal orders and agree with the evaluation and treatment provided.Attachments: 01:59 [facility] Payment Agreement hs2 10:41 T-Sheet-- Draft Copy gb 10:41 ECG/EKG gb 14:31 ECG/EKG gb Chart Complete MTDD
== END 2016-09-07 01:30 | disposition home or self-care (01) ==
LOC: M ED 19:18
DX: R07.9 Chest pain, unspecified (principal); R94.31 Abnormal electrocardiogram [ECG] [EKG]; I10 Essential (primary) hypertension; E78.00 Pure hypercholesterolemia, unspecified; I48.91 Unspecified atrial fibrillation; H40.9 Unspecified glaucoma; Z82.49 Family history of ischemic heart disease and other diseases of the circulatory system; Z79.01 Long term (current) use of anticoagulants; Z79.899 Other long term (current) drug therapy; Z88.6 Allergy status to analgesic agent

== ENCOUNTER 2018-04-11 16:01 | Emergency (ER) | payer MEDICARE | END 2018-04-11 17:34 | disposition home or self-care (01) | LOC: M ED 16:01 | DX: S00.03XA Contusion of scalp, initial encounter (principal); W22.8XXA Striking against or struck by other objects, initial encounter; Y92.098 Other place in other non-institutional residence as the place of occurrence of the external cause; I10 Essential (primary) hypertension; I48.91 Unspecified atrial fibrillation; E78.9 Disorder of lipoprotein metabolism, unspecified; H40.9 Unspecified glaucoma; Z79.899 Other long term (current) drug therapy; Z79.01 Long term (current) use of anticoagulants | CPT/HCPCS: 70450 ==

== ENCOUNTER 2018-10-28 09:32 | Emergency (ER) | payer MEDICARE ==
[~2018-10-28] VITALS: Ht 157.5 cm; Wt 45.5 kg
[~2018-10-28 09:32] MED LIST: AMLO25TA PO; ATEN50TA2 PO; BYST20TA2 PO; COUM2TAB22 PO; LISI-538 PO; SIMV10TA2 PO; TRAV04OPD OU
[2018-10-28] MEDS ORDERED: ACETAMINOPHEN 500 MG TAB PO ONE (10:00)
--- NOTE | 2018-10-28 10:01 | REP ---
Clinical: Acute chest pain . Comparison: 09/06/2016 . Findings: The mediastinum and cardiac silhouette are stable and within normal limits for portable technique. The lung weiss stable chronic changes without acute consolidation, effusion, or pneumothorax. Skeletal structures are intact. Impression: No acute cardiopulmonary process appreciated. Electronically Signed by Dyllan Mosher MD 10/28/2018 09:53 A
--- NOTE | 2018-10-28 10:29 | ECGEPIP ---
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
[2018-10-28 10:48] LABS: ALBUMIN 3.4 GM/DL (3.2-5.2); ALT/SGPT 12 U/L (12-78); BILIRUBIN,DIRECT 0.2 MG/DL (0.0-0.2); CK-MB VALUE MASS < 1.0 NG/ML (<3.6); CPK CREATINE PHOSPHOKINASE 50 U/L (26-192); LIPASE 335 U/L (73-393); NT-PRO BNP 3175 PG/ML (<450); TOTAL PROTEIN 7.8 GM/DL (6.4-8.2); TROPONIN I < 0.02 NG/ML (< 0.10)
[2018-10-28 11:07] LABS: INR 2.25; PROTHROMBIN TIME 25.3 SECONDS (12.1-14.4)
[2018-10-28 11:19] LABS: D-DIMER QUANT 1365.46 ng/ml (<500)
[2018-10-28 11:30] LABS: BASO % 0.2 % (0.0-1.0); EOS % 0.1 % (0.0-3.0); HEMOGLOBIN 11.5 g/dl (12.0-15.5); LYMPH # 0.7 10^3/uL (1.5-4.5); LYMPH % 5.1 % (24.0-44.0); MEAN CORPUSCULAR HEMOGLOBIN 31.4 pg (27.0-33.0); MEAN CORPUSCULAR HGB CONC 32.9 g/dl (32.0-36.5); MEAN CORPUSCULAR VOLUME 95.6 fl (80.0-96.0); MONO # 1.5 10^3/uL (0.0-0.8); MONO % 11.5 % (0.0-5.0); NEUTROPHILS # 10.7 10^3/uL (1.8-7.7); NEUTROPHILS % 82.6 % (36.0-66.0); PLATELET COUNT, AUTOMATED 173 10^3/uL (150-450); RED BLOOD COUNT 3.66 10^6/uL (4.00-5.40)
[2018-10-28 11:52] LABS: CALCIUM LEVEL 8.5 MG/DL (8.8-10.2); CREATININE FOR GFR 1.23 MG/DL (0.55-1.30); GLOMERULAR FILTRATION RATE 43.9 (>32)
[2018-10-28] MEDS ORDERED: ISOVUE-370 76% 125ML VIAL (Q9967 PER ML) As Ordered ONE (11:56)
--- NOTE | 2018-10-28 12:23 | REP ---
Clinical: Pleuritic chest pain and elevated D-dimer levels. Technique: Axial contrast enhanced images from the thoracic inlet to the upper abdomen with multiplanar re-formations using pulmonary embolus protocol. 100 ml Isovue 370 intravenous contrast material administered without complication. Comparison: None. Findings: Satisfactory enhancement of the pulmonary vasculature is achieved and no filling defects are identified to suggest pulmonary embolus. Thoracic aorta demonstrates atherosclerotic changes without obvious aneurysm or dissection. Cardiomegaly is noted along with atherosclerotic disease. No pericardial effusion. The lung weiss demonstrate diffuse scattered chronic-appearing interstitial and fibroatelectatic changes with significant biapical scarring as well as moderate scattered bronchiectasis. Small scattered bilateral areas of "tree in bud" opacities suggest scattered superimposed small acute areas of pneumonia and correlation is recommended. Area of consolidation involving the lingula measuring approximately 3.4 cm maximal diameter is also appreciated as well as small left pleural effusion. No obvious adenopathy. Musculoskeletal structures demonstrate age-related changes without focal osseous abnormality. Impression: 1. No pulmonary embolus. 2. Chronic pleuroparenchymal changes with superimposed small scattered areas of infiltrate suggesting small multifocal areas of pneumonia. Ill-defined area of consolidation in the lingula measuring 3.4 cm maximal diameter and small left pleural effusion. These findings require clinical correlation and short-term follow-up reevaluation as no prior examinations are available for comparison. Electronically Signed by Dyllan Mosher MD 10/28/2018 12:15 P
[2018-10-28] MEDS ORDERED: cefTRIAXone SOD 2 GM in D5W MINI-BAG PLUS 50 ML IV ONE (12:30)
[2018-10-28] MEDS ORDERED: AUGM875T28 PO ×2 (13:11→14:18)
[2018-10-28 14:17] VITALS: BP 103/65
--- NOTE | 2018-10-29 09:55 | ED PDOC ---
Post-Departure Follow-Up dr greenwood faxed formal report of cta for fu Rebecca Willams MD Oct 29, 2018 09:55
== END 2018-10-28 14:28 | disposition left against medical advice (07) ==
LOC: M ED 09:32
DX: R07.9 Chest pain, unspecified (principal); J18.9 Pneumonia, unspecified organism; I48.91 Unspecified atrial fibrillation; R94.31 Abnormal electrocardiogram [ECG] [EKG]; I10 Essential (primary) hypertension; E78.5 Hyperlipidemia, unspecified; H40.9 Unspecified glaucoma; Z79.01 Long term (current) use of anticoagulants; Z79.899 Other long term (current) drug therapy
CPT/HCPCS: 36415; 71045; 71275; 80048; 80076; 82550; 82553; 83605; 83690; 83880; 84484; 85025; 85379; 85610; 87040; 93005; 93041; 94760; 96374; 99285; J0696; Q9967

== ENCOUNTER 2018-10-29 09:53 | Emergency (ER) | payer MEDICARE ==
[~2018-10-29] VITALS: Ht 157.5 cm; Wt 45.9 kg
[~2018-10-29 09:53] MED LIST changes: +AUGM875T28 PO
--- NOTE | 2018-10-29 10:39 | REP ---
Clinical: Chest pain. Technique: PA and lateral. Comparison: 10/28/2018. Findings: Mediastinum and cardiac silhouette are within normal limits and stable. Lung weiss demonstrate diffuse chronic interstitial changes. The subtle opacities and small pleural reaction identified by recent chest CT dated 10/28/2018 is not significantly apparent by x-ray. No obvious new consolidation. No pneumothorax. Skeletal structures stable including diffuse osteopenia and degenerative changes as well as chronic compression deformity of T8 which remains stable when compared to chest x-ray dated 09/06/2016. Impression: 1. Diffuse chronic stable changes. 2. Subtle infiltrates and small left pleural reaction noted on chest CT are poorly evaluated by x-ray. Electronically Signed by Dyllan Mosher MD 10/29/2018 10:31 A
[2018-10-29 10:49] LABS: BASO % 0.3 % (0.0-1.0); EOS % 0.3 % (0.0-3.0); HEMATOCRIT 35.5 % (36.0-47.0); HEMOGLOBIN 11.8 g/dl (12.0-15.5); LYMPH # 0.6 10^3/uL (1.5-4.5); LYMPH % 5.1 % (24.0-44.0); MEAN CORPUSCULAR HEMOGLOBIN 31.5 pg (27.0-33.0); MEAN CORPUSCULAR HGB CONC 33.2 g/dl (32.0-36.5); MEAN CORPUSCULAR VOLUME 94.7 fl (80.0-96.0); MONO # 1.2 10^3/uL (0.0-0.8); MONO % 10.3 % (0.0-5.0); NEUTROPHILS # 9.6 10^3/uL (1.8-7.7); NEUTROPHILS % 83.6 % (36.0-66.0); PLATELET COUNT, AUTOMATED 185 10^3/uL (150-450); RED BLOOD COUNT 3.75 10^6/uL (4.00-5.40); WHITE BLOOD COUNT 11.4 10^3/uL (4.0-10.0)
[2018-10-29 11:12] LABS: CALCIUM LEVEL 8.9 MG/DL (8.8-10.2); CREATININE FOR GFR 1.44 MG/DL (0.55-1.30); GLOMERULAR FILTRATION RATE 36.6 (>32); POTASSIUM SERUM 3.8 MEQ/L (3.5-5.1)
[2018-10-29] MEDS ORDERED: NS 500 ML IV ONE (11:30)
[2018-10-29 12:53] VITALS: BP 126/79
== END 2018-10-29 12:58 | disposition home or self-care (01) ==
LOC: M ED 09:53
DX: J18.9 Pneumonia, unspecified organism (principal); N28.9 Disorder of kidney and ureter, unspecified; Z79.2 Long term (current) use of antibiotics; Z79.899 Other long term (current) drug therapy; Z79.01 Long term (current) use of anticoagulants

== ENCOUNTER 2018-11-16 02:08 | Inpatient (IN) | payer MEDICARE ==
[~2018-11-16] VITALS: Ht 154.9 cm; Wt 45.1 kg
[2018-11-16] MEDS ORDERED: NS 500 ML IV ONE (02:30)
[2018-11-16] MEDS ORDERED: CENTCHW3 PO (02:48)
[2018-11-16] MEDS ORDERED: CHLO125TA PO (02:48)
[2018-11-16 02:53] LABS: BASO # 0.1 10^3/uL (0.0-0.2); BASO % 0.4 % (0.0-1.0); EOS # 0.1 10^3/uL (0.0-0.50); EOS % 1.2 % (0.0-3.0); HEMATOCRIT 38.3 % (36.0-47.0); HEMOGLOBIN 12.5 g/dl (12.0-15.5); LYMPH # 0.9 10^3/uL (1.5-4.5); LYMPH % 7.8 % (24.0-44.0); MEAN CORPUSCULAR HEMOGLOBIN 31.5 pg (27.0-33.0); MEAN CORPUSCULAR HGB CONC 32.6 g/dl (32.0-36.5); MEAN CORPUSCULAR VOLUME 96.5 fl (80.0-96.0); MONO # 1.4 10^3/uL (0.0-0.8); MONO % 11.5 % (0.0-5.0); NEUTROPHILS # 9.2 10^3/uL (1.8-7.7); NEUTROPHILS % 78.8 % (36.0-66.0); PLATELET COUNT, AUTOMATED 199 10^3/uL (150-450); RED BLOOD COUNT 3.97 10^6/uL (4.00-5.40); WHITE BLOOD COUNT 11.7 10^3/uL (4.0-10.0)
[2018-11-16 03:48] LABS: CALCIUM LEVEL 8.8 MG/DL (8.8-10.2); CREATININE FOR GFR 2.64 MG/DL (0.55-1.30); GLOMERULAR FILTRATION RATE 18.2 (>32); POTASSIUM SERUM 3.7 MEQ/L (3.5-5.1)
[2018-11-16] MEDS ORDERED: TRAV04OPD OU (04:44)
[2018-11-16] MEDS ORDERED: IPRA6SP (04:45)
--- NOTE | 2018-11-16 05:06 | HPEPDOC ---
General Date of Admission Nov 16, 2018 at 03:54 Chief Complaint The patient is a 87-year-old female admitted with a reason for visit of Acute R enal Injury. History of Present Illness 87-year-old female with past medical history of hypertension, atrial fibrillation, mitral/tricuspid regurgitation, and dyslipidemia presented to the ER with a chief complaint of worsening diarrhea over the last 4 days. The patient states that she was started on a 14 day antibiotic course on October 28 for pneumonia noted on CTA of the chest and discharged from the ER. She was seen in follow-up by her primary care physician and also started on chlorthalidone for hypertension over the last one week. Since she completed her antibiotic trial, the patient states that she has been having 2-3 episodes of loose stools daily. Over the last 24 hours, she states that this has culminated to 5-7 loose, non-bloody stools. She denies any associated fevers, chills, chest pain, palpitations, abdominal pain, sick contacts, recent travel, ingestion of any foreign foods, or any nausea/vomiting. In the ER, the patient was noted to have an acute kidney injury. She will be admitted to the hospitalist service for further evaluation and management. Home Medications Scheduled Atenolol (Atenolol) 50 Mg Tab, 75 MG PO BID, (Reported) Chlorthalidone (Chlorthalidone) 25 Mg Tablet, 25 MG PO Q2D, (Reported) Ipratropium [place] (Ipratropium [place]) 15 Ml [place], 1 SPRAY NA BID, (Reported) Lisinopril (Lisinopril) 20 Mg Tab, 20 MG PO QHS, (Reported) Simvastatin (Simvastatin) 10 Mg Tab, 5 MG PO QHS, (Reported) Travoprost (Travatan Z) 2.5 Ml Drops, 1 DROP OU QHS, (Reported) Warfarin Sodium (Coumadin) 2 Mg Tab, 1 MG PO DAILY, (Reported) Miscellaneous Medications Folic Acid/Multivit-Min/Lutein (Centrum Silver Chewable Tablet) 1 Each Tab.chew, 1 CHW PO, (Reported) Allergies Coded Allergies: No Known Allergies (Unverified , 11/16/18) Past Medical History Medical History As noted in HPI. Social History * Smoker: Denies Alcohol: Denies Drugs: denies Review of Systems Other systems 10 point review of systems negative unless otherwise specified in HPI. Physical Examination General Exam: Positive: Alert, Cooperative, No Acute Distress ENT Exam: Positive: Atraumatic, Mucous membr. moist/pink Neck Exam: Negative: JVD Chest Exam: Positive: Clear to auscultation, Normal air movement Heart Exam: Positive: Rate Normal, Normal S1, Normal S2 Abdomen Exam: Positive: Soft; Negative: Tenderness Extremity Exam: Negative: Tenderness, Swelling Psych Exam: Positive: Oriented x 3 Vital Signs Vital Signs Date Time Temp Pulse Resp B/P (MAP) Pulse Ox O2 Delivery O2 Flow Rate FiO2 11/16/18 03:00 82 18 123/78 (93) 99 Room Air 11/16/18 02:11 97.6 Laboratory Data Labs 24H Laboratory Tests 2 11/16/18 02:42: Immature Granulocyte % (Auto) 0.3, White Blood Count 11.7H, Red Blood Count 3.97L, Hemoglobin 12.5, Hematocrit 38.3, Mean Corpuscular Volume 96.5H, Mean Corpuscular Hemoglobin 31.5, Mean Corpuscular Hemoglobin Concent 32.6, Red Cell Distribution Width 13.1, Platelet Count 199, Neutrophils (%) (Auto) 78.8H, Lymphocytes (%) (Auto) 7.8L, Monocytes (%) (Auto) 11.5H, Eosinophils (%) (Auto) 1.2, Basophils (%) (Auto) 0.4, Neutrophils # (Auto) 9.2H, Lymphocytes # (Auto) 0.9L, Monocytes # (Auto) 1.4H, Eosinophils # (Auto) 0.1, Basophils # (Auto) 0.1, Nucleated Red Blood Cells % (auto) 0.0, Anion Gap 10, Glomerular Filtration Rate 18.2L, Blood Urea Nitrogen 37H, Creatinine 2.64H, Sodium Level 137, Potassium Level 3.7, Chloride Level 104, Carbon Dioxide Level 23, Calcium Level 8.8 CBC/BMP Laboratory Tests 11/16/18 02:42 Red Blood Count 3.97 L, Mean Corpuscular Volume 96.5 H, Mean Corpuscular Hemoglobin 31.5, Mean Corpuscular Hemoglobin Concent 32.6, Red Cell Distribution Width 13.1, Neutrophils (%) (Auto) 78.8 H, Lymphocytes (%) (Auto) 7.8 L, [place] cytes (%) (Auto) 11.5 H, Eosinophils (%) (Auto) 1.2, Basophils (%) (Auto) 0.4, Neutrophils # (Auto) 9.2 H, Lymphocytes # (Auto) 0.9 L, Monocytes # (Auto) 1.4 H, Eosinophils # (Auto) 0.1, Basophils # (Auto) 0.1, Calcium Level 8.8 Plan / VTE VTE Prophylaxis Ordered?: Yes Plan Plan Acute Kidney Injury Superimposed on CKD Stage III In the setting of concomittant diarrhea, ALIX-I therapy, and newly implemented use of chlorthalidone Baseline Cr 1.2 (2.64 on admission) IVF Hydration ordered Hold Nephrotoxins Urine Lytes, Urinalysis ordered Renal U/S Will follow up with Repeat BMP @ Noon Consider Nephrology consultation if renal function worsens Diarrhea. r/o C. Diff Given recent abx use, GI Panel ordered We will cont to monitor off antibiotics for now Hx of Atrial Fibrillation Patient on Coumadin at home--we will repeat an INR here before restarting her Coumadin dose Cont Atenolol Hypertension Hold ALIX-I, Chlorthalidone secondary to above Hx of MR/TR Follow up with Cardiology as outpatient Hx of Dyslipidemia Will hold statin until renal function improves DVT Prophylaxis On Coumadin--SCDs/GIULIANA Bender MD Nov 16, 2018 05:06
[2018-11-16 06:00] VITALS: BP 121/73
[2018-11-16] MEDS: NS 1,000 ML IV SCH ×2 (06:28→21:35)
--- NOTE | 2018-11-16 08:48 | REP ---
Renal ultrasound: The right kidney measures 9.8 x 5.4 x 3.8 cm. Left kidney measures 9.0 x 4.1 x 3.7 cm. The kidneys are in the low normal size range. Renal cortical echogenicity is normal bilaterally. There are no renal calculi. There is no hydronephrosis. There are no solid or cystic renal masses. Bladder: The bladder is collapsed and cannot be further evaluated. Impression: The kidneys are in the low normal size range bilaterally. Otherwise, negative renal ultrasound. Electronically Signed by Mike Navarro MD 11/16/2018 08:39 A
[2018-11-16] MEDS ORDERED: PILL CRUSHER/CUTTER 1 EACH XX PRN (09:00)
[2018-11-16] MEDS: VANCOMYCIN ORAL SOL 250MG/5ML ORAL SYRINGE PO SCH ×3 (09:16→18:01)
[2018-11-16 09:26] LABS: INR 2.69; PROTHROMBIN TIME 29.2 SECONDS (12.1-14.4)
[2018-11-16] MEDS: ATENOLOL 50 MG TAB PO SCH ×2 (09:34→21:35)
[2018-11-16] MEDS: IPRATROPIUM 0.06% NASAL SPRAY 15 ML (ATROVENT) SCH ×2 (09:34→21:00)
[2018-11-16 12:41] LABS: CALCIUM LEVEL 8.6 MG/DL (8.8-10.2); CREATININE FOR GFR 1.78 MG/DL (0.55-1.30); GLOMERULAR FILTRATION RATE 28.6 (>32); POTASSIUM SERUM 3.8 MEQ/L (3.5-5.1)
[2018-11-16 13:10] LABS: SODIUM,RANDOM URINE 115 MEQ/L
[2018-11-16 14:00] VITALS: BP 130/71
[2018-11-16 14:07] LABS: APPEARANCE, URINE MANUAL HAZY (CLEAR); BILIRUBIN, URINE MANUAL NEGATIVE (NEGATIVE); BLOOD URINE MANUAL TRACE (NEGATIVE); COLOR, URINE MANUAL LT YELLOW (YELLOW); GLUCOSE, URINE (UA) MANUAL NEGATIVE (NEGATIVE); KETONE, URINE MANUAL NEGATIVE (NEGATIVE); LEUKOCYTE ESTERASE, URINE MAN NEGATIVE (NEGATIVE); NITRITE, URINE MANUAL NEGATIVE (NEGATIVE); PROTEIN, URINE MANUAL NEGATIVE (NEGATIVE); UROBILINOGEN, URINE MANUAL NORMAL (NORMAL)
[2018-11-16 14:13] LABS: BACTERIA, URINE MOD AMOUNT; HYALINE CAST, URINE NONE SEEN /lpf (0-1); SQUAMOUS EPITHELIAL CELL URINE NONE SEEN /hpf (SMALL AMT); WBC, URINE 0-1 /hpf (0-3)
[2018-11-16] MEDS: LACTOBACILLUS ACIDOPHILUS CAP (BACID) PO SCH (18:01)
--- NOTE | 2018-11-16 18:32 | IPNPDOC ---
Date Seen The patient was seen on 11/16/18. Progress Note SUBJECTIVE: 87-year-old female past history of atrial fibrillation, valvular disease, hypertension and hyperlipidemia presented to ER with complaints of worsening diarrhea found to have C. difficile and AZALEA. Interval history: Stool study resulted + for c. diff. Patient was placed on isolation and started on PO vancomycin. She states that she feels better than on arrival but still has diarrhea. Otherwise reports that she has no other complaints. OBJECTIVE PHYSICAL EXAMINATION: VITAL SIGNS: Please see below. General: No acute distress, Alert Eyes: Normal sclera, EOMI, ОЛЕГ HENT: Atraumatic, neck supple, moist mucous membranes Cardiovascular: Normal rate, normal rhythm. No murmurs appreciated. Pulmonary: Clear to auscultation b/l, no wheezing GI: Soft, nontender, nondistended Skin: Warm and dry Neuro: CN grossly intact. No focal deficits. Strengths equal b/l. Psych: oriented x 3 LABORATORY DATA, IMAGING STUDIES, MICROBIOLOGY: Please see below. DVT prophylaxis ordered?: On Warfarin. Also EVY. ASSESSMENT AND PLAN: 1. C. diff. - Started on PO Vancomycin. Diarrhea is reportedly slightly better. - c/w supportive care. IVF - c/w antibiotics for 10 days total. 2. AZALEA on CKD Stage III - likely 2/2 dehydration 2/2 diarrhea. - gentle IVF support. - Hold nephrotoxins. - Recently started on ACEI and chlorthalidone as well. - Monitor daily BMP. 3. hx afib - c/w home dose warfarin. - daily INR. - c/w atenolol. 4. 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 VS, I&O, 24H, [place] Vital Signs/I&O Vital Signs Date Time Temp Pulse Resp B/P (MAP) Pulse Ox O2 Delivery O2 Flow Rate FiO2 11/16/18 14:00 97.8 93 19 130/71 (90) 96 11/16/18 05:16 Room Air I&O- Last 24 Hours up to 6 AM 11/16/18 06:00 Intake Total 500 ml Output Total 0 ml Balance 500 ml Laboratory Data 24H LABS Laboratory Tests 2 11/16/18 02:42: Immature Granulocyte % (Auto) 0.3, White Blood Count 11.7H, Red Blood Count 3.97L, Hemoglobin 12.5, Hematocrit 38.3, Mean Corpuscular Volume 96.5H, Mean Corpuscular Hemoglobin 31.5, Mean Corpuscular Hemoglobin Concent 32.6, Red Cell Distribution Width 13.1, Platelet Count 199, Neutrophils (%) (Auto) 78.8H, Lymphocytes (%) (Auto) 7.8L, Monocytes (%) (Auto) 11.5H, Eosinophils (%) (Auto) 1.2, Basophils (%) (Auto) 0.4, Neutrophils # (Auto) 9.2H, Lymphocytes # (Auto) 0.9L, Monocytes # (Auto) 1.4H, Eosinophils # (Auto) 0.1, Basophils # (Auto) 0.1, Nucleated Red Blood Cells % (auto) 0.0, Anion Gap 10, Glomerular Filtration Rate 18.2L, Blood Urea Nitrogen 37H, Creatinine 2.64H, Sodium Level 137, Potassium Level 3.7, Chloride Level 104, Carbon Dioxide Level 23, Calcium Level 8.8 11/16/18 09:02: Prothrombin Time 29.2H, Prothromb Time International Ratio 2.69 11/16/18 11:38: Anion Gap 7L, Glomerular Filtration Rate 28.6L, Blood Urea Nitrogen 36H, Creatinine 1.78H, Sodium Level 138, Potassium Level 3.8, Chloride Level 106, Carbon Dioxide Level 25, Calcium Level 8.6L 11/16/18 12:29: Bedside Urine Color (LAB) LT YELLOW, Bedside Urine Appearance (LAB) HAZYH, Bedside Urine pH (LAB) 5.0, Bedside Urine Specific [place] (LAB 1.020, Bedside Urine Protein (LAB) NEGATIVE, Bedside Urine Glucose (UA) NEGATIVE, Bedside Urine Ketones (LAB) NEGATIVE, Bedside Urine Blood TRACEH, Bedside Urine Nitrite (LAB) NEGATIVE, Bedside Urine Bilirubin (LAB) NEGATIVE, Bedside Urine Urobilinogen (LAB) NORMAL, Bedside Urine Leukocyte Esterase (L NEGATIVE, Urine WBC 0-1, Urine RBC 1-3, Urine Squamous Epithelial Cells NONE SEEN, Urine Bacteria MOD AMOUNTH, Urine Hyaline Casts NONE SEEN, Urine Sediment Examination PERFORMED, Urine Random Creatinine 153.0, Urine Random Sodium 115 CBC/BMP Laboratory Tests 11/16/18 02:42 Red Blood Count 3.97 L, Mean Corpuscular Volume 96.5 H, Mean Corpuscular Hemoglobin 31.5, Mean Corpuscular Hemoglobin Concent 32.6, Red Cell Distribution Width 13.1, Neutrophils (%) (Auto) 78.8 H, Lymphocytes (%) (Auto) 7.8 L, Monocytes (%) (Auto) 11.5 H, Eosinophils (%) (Auto) 1.2, Basophils (%) (Auto) 0.4, Neutrophils # (Auto) 9.2 H, Lymphocytes # (Auto) 0.9 L, Monocytes # (Auto) 1.4 H, Eosinophils # (Auto) 0.1, Basophils # (Auto) 0.1, Calcium Level 8.8 11/16/18 11:38 Calcium Level 8.6 L Microbiology Microbiology 11/16/18 Gastrointestinal Tract Panel (PCR) - Final, Complete Clostridium Difficile A/B ESTEFANI IBRAHIM MD Nov 16, 2018 18:32
[2018-11-16 22:00] VITALS: BP 112/68
[2018-11-17] MEDS: VANCOMYCIN ORAL SOL 250MG/5ML ORAL SYRINGE PO SCH ×5 (00:08→23:39)
[2018-11-17] MEDS: IPRATROPIUM 0.06% NASAL SPRAY 15 ML (ATROVENT) SCH ×3 (02:45→21:00)
[2018-11-17 06:00] VITALS: BP 130/86
[2018-11-17 06:48] LABS: HEMATOCRIT 33.6 % (36.0-47.0); MEAN CORPUSCULAR HEMOGLOBIN 31.1 pg (27.0-33.0); MEAN CORPUSCULAR HGB CONC 32.7 g/dl (32.0-36.5); MEAN CORPUSCULAR VOLUME 94.9 fl (80.0-96.0); PLATELET COUNT, AUTOMATED 141 10^3/uL (150-450); RED BLOOD COUNT 3.54 10^6/uL (4.00-5.40); WHITE BLOOD COUNT 7.2 10^3/uL (4.0-10.0)
[2018-11-17 07:04] LABS: ALBUMIN 2.9 GM/DL (3.2-5.2); BILIRUBIN,TOTAL 0.4 MG/DL (0.2-1.0); CALCIUM LEVEL 8.2 MG/DL (8.8-10.2); CREATININE FOR GFR 1.39 MG/DL (0.55-1.30); GLOMERULAR FILTRATION RATE 38.1 (>32); MAGNESIUM LEVEL 1.5 MG/DL (1.8-2.4); POTASSIUM SERUM 3.5 MEQ/L (3.5-5.1); TOTAL PROTEIN 6.5 GM/DL (6.4-8.2)
[2018-11-17] MEDS: ATENOLOL 50 MG TAB PO SCH ×2 (08:57→22:23)
[2018-11-17] MEDS: LACTOBACILLUS ACIDOPHILUS CAP (BACID) PO SCH ×2 (08:57→18:38)
[2018-11-17] MEDS: NS 1,000 ML IV SCH ×2 (08:58→22:24)
[2018-11-17 14:00] VITALS: BP 126/80
--- NOTE | 2018-11-17 16:12 | IPNPDOC ---
Date Seen The patient was seen on 11/17/18. Progress Note SUBJECTIVE: 87-year-old female past history of atrial fibrillation, valvular disease, hypertension and hyperlipidemia presented to ER with complaints of worsening diarrhea found to have C. difficile and AZALEA. Interval history: Patient reports still having loose stools and abdominal discomfort when she has bowel movements. Otherwise when she is not moving her bowel, she reports feeling well and able to tolerate her food without any nausea or vomiting. OBJECTIVE PHYSICAL EXAMINATION: VITAL SIGNS: Please see below. General: No acute distress, Alert Eyes: Normal sclera, EOMI, ОЛЕГ HENT: Atraumatic, neck supple, moist mucous membranes Cardiovascular: Normal rate, normal rhythm. No murmurs appreciated. Pulmonary: Clear to auscultation b/l, no wheezing GI: Soft, nontender, nondistended Skin: Warm and dry Neuro: CN grossly intact. No focal deficits. Strengths equal b/l. Psych: oriented x 3 LABORATORY DATA, IMAGING STUDIES, MICROBIOLOGY: Please see below. DVT prophylaxis ordered?: On Warfarin. Also EVY. ASSESSMENT AND PLAN: 1. C. diff. - Started on PO Vancomycin. Diarrhea is slightly better. - c/w supportive care. IVF - c/w antibiotics for 10 days total, started 11/16/18. 2. AZALEA on CKD Stage III - likely 2/2 dehydration 2/2 diarrhea. - gentle IVF support. - Hold nephrotoxins. - Recently started on ACEI and chlorthalidone as well. - Monitor daily BMP. 3. hx afib - c/w home dose warfarin. - daily INR. - c/w atenolol. 4. 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 VS, I&O, 24H, [facility] Vital Signs/I&O Vital Signs Date Time Temp Pulse Resp B/P (MAP) Pulse Ox O2 Delivery O2 Flow Rate FiO2 11/17/18 14:00 98.2 101 17 126/80 (95) 96 11/16/18 05:16 Room Air I&O- Last 24 Hours up to 6 AM 11/17/18 06:00 Intake Total 2540 ml Output Total 150 ml Balance 2390 ml Laboratory Data 24H LABS Laboratory Tests 2 11/17/18 05:33: Nucleated Red Blood Cells % (auto) 0.0, Anion Gap 7L, Glomerular Filtration Rate 38.1, Blood Urea Nitrogen 27H, Creatinine 1.39H, Sodium Level 140, Potassium Level 3.5, Chloride Level 109H, Carbon Dioxide Level 24, Calcium Level 8.2L, Aspartate Amino Transf (AST/SGOT) 14, Alanine Aminotransferase (ALT/SGPT) 11L, Alkaline Phosphatase 79, Total Bilirubin 0.4, Total Protein 6.5, Albumin 2.9L, Magnesium Level 1.5L, Albumin/Globulin Ratio 0.81L CBC/BMP Laboratory Tests 11/17/18 05:33 Red Blood Count 3.54 L, Mean Corpuscular Volume 94.9, Mean Corpuscular Hemoglobin 31.1, Mean Corpuscular Hemoglobin Concent 32.7, Red Cell Distribution Width 13.1, Calcium Level 8.2 L, Aspartate Amino Transf (AST/SGOT) 14, Alanine Aminotransferase (ALT/SGPT) 11 L, Alkaline Phosphatase 79, Total Bilirubin 0.4, Total Protein 6.5, Albumin 2.9 L Microbiology Microbiology 11/16/18 Gastrointestinal Tract Panel (PCR) - Final, Complete Clostridium Difficile A/B ESTEFANI IBRAHIM MD Nov 17, 2018 16:12
[2018-11-17 22:00] VITALS: BP 131/90
[2018-11-18] MEDS: VANCOMYCIN ORAL SOL 250MG/5ML ORAL SYRINGE PO SCH ×3 (05:32→18:13)
[2018-11-18 06:00] VITALS: BP 91/52
[2018-11-18 06:38] LABS: HEMATOCRIT 30.2 % (36.0-47.0); HEMOGLOBIN 10.1 g/dl (12.0-15.5); MEAN CORPUSCULAR HGB CONC 33.4 g/dl (32.0-36.5); MEAN CORPUSCULAR VOLUME 92.6 fl (80.0-96.0); PLATELET COUNT, AUTOMATED 148 10^3/uL (150-450); RED BLOOD COUNT 3.26 10^6/uL (4.00-5.40)
[2018-11-18 06:50] LABS: BLOOD UREA NITROGEN 17 MG/DL (7-18); CALCIUM LEVEL 7.7 MG/DL (8.8-10.2); CARBON DIOXIDE LEVEL 21 MEQ/L (21-32); CHLORIDE LEVEL 110 MEQ/L (98-107); GLOMERULAR FILTRATION RATE > 60.0 (>32); GLUCOSE, FASTING 87 MG/DL (70-100); POTASSIUM SERUM 3.3 MEQ/L (3.5-5.1); SODIUM LEVEL 140 MEQ/L (136-145)
[2018-11-18 08:45] VITALS: BP 118/60
[2018-11-18] MEDS: IPRATROPIUM 0.06% NASAL SPRAY 15 ML (ATROVENT) SCH ×2 (09:00→21:46)
[2018-11-18] MEDS ORDERED: POTASSIUM CHLORIDE 10 MEQ SR TABLET PO ONE (09:00)
[2018-11-18] MEDS: NS 1,000 ML IV SCH (09:20)
[2018-11-18] MEDS: LACTOBACILLUS ACIDOPHILUS CAP (BACID) PO SCH ×2 (09:48→18:13)
[2018-11-18] MEDS: ATENOLOL 50 MG TAB PO SCH ×2 (09:49→21:47)
--- NOTE | 2018-11-18 11:53 | IPNPDOC ---
Date Seen The patient was seen on 11/18/18. Progress Note SUBJECTIVE: 87-year-old female past history of atrial fibrillation, valvular disease, hypertension and hyperlipidemia presented to ER with complaints of worsening diarrhea found to have C. difficile and AZALEA. Interval history: Patient reports feeling slightly better with regards to abdominal discomfort when moving bowel but states that stool is still loose. OBJECTIVE PHYSICAL EXAMINATION: VITAL SIGNS: Please see below. General: No acute distress, Alert Eyes: Normal sclera, EOMI, ОЛЕГ HENT: Atraumatic, neck supple, moist mucous membranes Cardiovascular: Normal rate, normal rhythm. No murmurs appreciated. Pulmonary: Clear to auscultation b/l, no wheezing GI: Soft, nontender, nondistended Skin: Warm and dry Neuro: CN grossly intact. No focal deficits. Strengths equal b/l. Psych: oriented x 3 LABORATORY DATA, IMAGING STUDIES, MICROBIOLOGY: Please see below. DVT prophylaxis ordered?: On Warfarin. Also EVY. ASSESSMENT AND PLAN: 1. C. diff. - Started on PO Vancomycin. Diarrhea is slightly better. - c/w supportive care. IVF - c/w antibiotics for 10 days total, started 11/16/18. 2. AZALEA on CKD Stage III - likely 2/2 dehydration 2/2 diarrhea. - gentle IVF support. - Hold nephrotoxins. - Recently started on ACEI and chlorthalidone as well. - Monitor daily BMP. 3. hx afib - c/w home dose warfarin. - daily INR. - c/w atenolol. 4. 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 VS, I&O, 24H, [place] Vital Signs/I&O Vital Signs Date Time Temp Pulse Resp B/P (MAP) Pulse Ox O2 Delivery O2 Flow Rate FiO2 11/18/18 09:49 78 118/60 11/18/18 08:45 99.5 20 95 11/16/18 05:16 Room Air I&O- Last 24 Hours up to 6 AM 11/18/18 06:00 Intake Total 3320 ml Output Total 100 ml Balance 3220 ml Laboratory Data 24H LABS Laboratory Tests 2 11/18/18 05:35: Nucleated Red Blood Cells % (auto) 0.0, Anion Gap 9, Glomerular Filtration Rate > 60.0, Blood Urea Nitrogen 17, Creatinine 0.90, Sodium Level 140, Potassium Level 3.3L, Chloride Level 110H, Carbon Dioxide Level 21, Calcium Level 7.7L CBC/BMP Laboratory Tests 11/18/18 05:35 Red Blood Count 3.26 L, Mean Corpuscular Volume 92.6, Mean Corpuscular Hemoglobin 31.0, Mean Corpuscular Hemoglobin Concent 33.4, Red Cell Distribution Width 13.1, Calcium Level 7.7 L Microbiology Microbiology 11/16/18 Gastrointestinal Tract Panel (PCR) - Final, Complete Clostridium Difficile A/B ESTEFANI IBRAHIM MD Nov 18, 2018 11:53
[2018-11-18 14:00] VITALS: BP 120/62
[2018-11-18] MEDS: WARFARIN SOD 2 MG TAB PO SCH (18:13)
[2018-11-18] MEDS: LISINOPRIL 20 MG TAB PO SCH (21:47)
[2018-11-18 22:00] VITALS: BP 114/69
[2018-11-19] MEDS: VANCOMYCIN ORAL SOL 250MG/5ML ORAL SYRINGE PO SCH ×4 (00:14→17:41)
[2018-11-19] MEDS: NS 1,000 ML IV SCH (00:14)
[2018-11-19 06:00] VITALS: BP 104/63
[2018-11-19 06:34] LABS: HEMATOCRIT 29.8 % (36.0-47.0); HEMOGLOBIN 10.1 g/dl (12.0-15.5); MEAN CORPUSCULAR HEMOGLOBIN 31.6 pg (27.0-33.0); MEAN CORPUSCULAR HGB CONC 33.9 g/dl (32.0-36.5); MEAN CORPUSCULAR VOLUME 93.1 fl (80.0-96.0); PLATELET COUNT, AUTOMATED 144 10^3/uL (150-450); WHITE BLOOD COUNT 5.8 10^3/uL (4.0-10.0)
[2018-11-19 06:40] LABS: INR 2.23; PROTHROMBIN TIME 25.1 SECONDS (12.1-14.4)
[2018-11-19 06:45] LABS: BLOOD UREA NITROGEN 12 MG/DL (7-18); CALCIUM LEVEL 7.9 MG/DL (8.8-10.2); CARBON DIOXIDE LEVEL 20 MEQ/L (21-32); CHLORIDE LEVEL 112 MEQ/L (98-107); GLOMERULAR FILTRATION RATE > 60.0 (>32); GLUCOSE, FASTING 74 MG/DL (70-100); POTASSIUM SERUM 3.3 MEQ/L (3.5-5.1); SODIUM LEVEL 141 MEQ/L (136-145)
[2018-11-19] MEDS ORDERED: POTASSIUM CHLORIDE 10 MEQ SR TABLET PO ONE (08:00)
[2018-11-19] MEDS ORDERED: CHLORTHALIDONE 25 MG TAB PO SCH (09:00)
[2018-11-19] MEDS: LACTOBACILLUS ACIDOPHILUS CAP (BACID) PO SCH ×2 (09:44→17:41)
[2018-11-19] MEDS: ATENOLOL 50 MG TAB PO SCH ×2 (09:44→21:26)
[2018-11-19] MEDS: IPRATROPIUM 0.06% NASAL SPRAY 15 ML (ATROVENT) SCH ×2 (09:45→21:26)
--- NOTE | 2018-11-19 11:23 | IPNPDOC ---
Date Seen The patient was seen on 11/19/18. Progress Note SUBJECTIVE: 87-year-old female past history of atrial fibrillation, valvular disease, hypertension and hyperlipidemia presented to ER with complaints of worsening diarrhea found to have C. difficile and AZALEA. Interval history: Patient reports feeling fine. Her stool is reportedly more formed and her abdominal discomfort/cramping with bowel movements is decreasing in intensity. OBJECTIVE PHYSICAL EXAMINATION: VITAL SIGNS: Please see below. General: No acute distress, Alert Eyes: Normal sclera, EOMI, ОЛЕГ HENT: Atraumatic, neck supple, moist mucous membranes Cardiovascular: Normal rate, normal rhythm. No murmurs appreciated. Pulmonary: Clear to auscultation b/l, no wheezing GI: Soft, nontender, nondistended Skin: Warm and dry Neuro: CN grossly intact. No focal deficits. Strengths equal b/l. Psych: oriented x 3 LABORATORY DATA, IMAGING STUDIES, MICROBIOLOGY: Please see below. DVT prophylaxis ordered?: On Warfarin. Also EVY. ASSESSMENT AND PLAN: 1. C. diff. - Started on PO Vancomycin. Diarrhea and abdominal discomfort is improving. - c/w supportive care. IVF - c/w antibiotics for 10 days total, started 11/16/18. 2. AZALEA on CKD Stage III - resolved with IVF resuscitation and improvement of diarrhea. - Monitor daily BMP. d/c IVF for now. 3. hx afib - c/w home dose warfarin. - daily INR. - c/w atenolol. 4. 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 Dispo: likely ready for discharge in the next day or 2 to complete course of PO Vanco. VS, I&O, 24H, Fishbone Vital Signs/I&O Vital Signs Date Time Temp Pulse Resp B/P (MAP) Pulse Ox O2 Delivery O2 Flow Rate FiO2 11/19/18 09:44 75 108/60 11/19/18 06:00 98.0 18 97 11/16/18 05:16 Room Air I&O- Last 24 Hours up to 6 AM 11/19/18 06:00 Intake Total 2310 ml Output Total 0 ml Balance 2310 ml Laboratory Data 24H LABS Laboratory Tests 2 11/19/18 05:37: Nucleated Red Blood Cells % (auto) 0.3H, Prothrombin Time 25.1H, Prothromb Time International Ratio 2.23, Anion Gap 9, Glomerular Filtration Rate > 60.0, Blood Urea Nitrogen 12, Creatinine 0.80, Sodium Level 141, Potassium Level 3.3L, Chloride Level 112H, Carbon Dioxide Level 20L, Calcium Level 7.9L CBC/BMP Laboratory Tests 11/19/18 05:37 Red Blood Count 3.20 L, Mean Corpuscular Volume 93.1, Mean Corpuscular Hemoglobin 31.6, Mean Corpuscular Hemoglobin Concent 33.9, Red Cell Distribution Width 13.1, Calcium Level 7.9 L Microbiology Microbiology 11/16/18 Gastrointestinal Tract Panel (PCR) - Final, Complete Clostridium Difficile A/B ESTEFANI IBRAHIM MD Nov 19, 2018 11:23
[2018-11-19 14:00] VITALS: BP 125/62
[2018-11-19] MEDS: WARFARIN SOD 2 MG TAB PO SCH (17:40)
[2018-11-19] MEDS: LISINOPRIL 20 MG TAB PO SCH (21:26)
[2018-11-19 22:00] VITALS: BP 117/74
[2018-11-20] MEDS: VANCOMYCIN ORAL SOL 250MG/5ML ORAL SYRINGE PO SCH ×3 (00:06→13:03)
[2018-11-20 06:00] VITALS: BP 128/74
[2018-11-20 06:22] LABS: HEMATOCRIT 32.6 % (36.0-47.0); HEMOGLOBIN 10.8 g/dl (12.0-15.5); MEAN CORPUSCULAR HEMOGLOBIN 30.9 pg (27.0-33.0); MEAN CORPUSCULAR HGB CONC 33.1 g/dl (32.0-36.5); MEAN CORPUSCULAR VOLUME 93.1 fl (80.0-96.0); PLATELET COUNT, AUTOMATED 177 10^3/uL (150-450); WHITE BLOOD COUNT 4.9 10^3/uL (4.0-10.0)
[2018-11-20 06:32] LABS: INR 2.23; PROTHROMBIN TIME 25.1 SECONDS (12.1-14.4)
[2018-11-20 06:49] LABS: CALCIUM LEVEL 8.3 MG/DL (8.8-10.2); CREATININE FOR GFR 1.01 MG/DL (0.55-1.30); GLOMERULAR FILTRATION RATE 55.1 (>32); POTASSIUM SERUM 3.4 MEQ/L (3.5-5.1)
[2018-11-20] MEDS ORDERED: POTASSIUM CHLORIDE 10 MEQ SR TABLET PO ONE (07:30)
[2018-11-20] MEDS: LACTOBACILLUS ACIDOPHILUS CAP (BACID) PO SCH (07:51)
[2018-11-20 07:53] VITALS: BP 128/83
[2018-11-20] MEDS: IPRATROPIUM 0.06% NASAL SPRAY 15 ML (ATROVENT) SCH (07:53)
[2018-11-20] MEDS: ATENOLOL 50 MG TAB PO SCH (07:53)
[2018-11-20] MEDS ORDERED: VANC125C3 PO (11:35)
[2018-11-20 13:57] VITALS: BP 118/68
[2018-11-20 14:00] VITALS: BP 71/46
== END 2018-11-20 15:55 | disposition home or self-care (01) | DRG 372 ==
LOC: M ED 02:08 → M ED INP 03:54 → M MSPAV 06:05
PROVIDERS: ADMIT Internal Medicine; ATTEND Student in an Organized Health Care Education/Training Program
DX: A04.72 Enterocolitis due to Clostridium difficile, not specified as recurrent (principal); N17.9 Acute kidney failure, unspecified; I12.9 Hypertensive chronic kidney disease with stage 1 through stage 4 chronic kidney disease, or unspecified chronic kidney disease; I48.91 Unspecified atrial fibrillation; E78.5 Hyperlipidemia, unspecified; N18.3 Chronic kidney disease, stage 3 (moderate); Z79.01 Long term (current) use of anticoagulants; Z79.899 Other long term (current) drug therapy; I08.1 Rheumatic disorders of both mitral and tricuspid valves

== ENCOUNTER → 2019-08-08 | Outpatient (REF) | payer MEDICARE ==
[~2019-08-08] MED LIST changes: +CENTCHW3 PO; +CHLO125TA PO; +IPRA6SP; -SIMV10TA2 PO; +SIMV10TA21 PO; +VANC125C3 PO
== END ==
LOC: M LAB REF 15:39
PROVIDERS: ATTEND Otolaryngology
DX: D48.5 Neoplasm of uncertain behavior of skin (principal)